=== PATIENT | female | born 1990 | race Caucasian/White ===

== ENCOUNTER 2024-07-20 13:17 | Outpatient (AMB) | payer MEDICARE, SELFPAY ==
--- NOTE | 2024-07-20 13:21 | AMB.OBINITIA ---
Vital Signs 07/20/24 13:36 Height 1.52 m Height Method Stated Weight 81.193 kg Weight Measurement Method Standing Scale BMI 34.9 BP 118/80 Blood Pressure Source Automatic Cuff Blood Pressure Location Left Upper Arm Position Sitting Respiration 16 Pulse 83 Pulse Source Monitor Temp 97.7 F Temp Source Oral Pulse Oximetry (%) 98 Oxygen Delivery Method Room Air Allergies/Home Meds Allergies & Medications Allergies No Known Allergies Allergy (Verified 07/20/24 13:37) Medication Reconciliation aspirin 81 mg tablet,delayed release (Adult Aspirin Regimen) 81 mg PO QDAY #60 tabs 07/20/24 [Rx] labetalol 100 mg tablet 100 mg PO BID 07/20/24 [History Confirmed 07/20/24] Intake Visit Data Collection New Patient or Established: New Patient (never been to [facility]) Reason for Visit:: INITIAL CARE Seen by Clinical Staff ONLY (RN/MA): No Tools And Parts Attendant Required: No Do You Feel Safe at Home: Yes Authorities Contacted: N/A PCP or OBGYN visit in last 3 months: Yes Hx Now: Yes Are you currently on any form of Control: No Last menstrual period: 04/15/24 Pain Present Currently: Yes Pain Location: Back Pain Scale Used: Wellington-Blake/Numerical Pain scale:: 7 Smoking Status Smoking Status: Never smoker Questionnaires Covid-19 Vaccine Questionnaire Has patient been vacinated for Covid-19 Have you been vacinated for Covid-19: Yes PHQ-9 PHQ-2 Over the last 2 weeks, how often have you been bothered by any of the following problems? 1. Little interest or pleasure in doing things: not at all 2. Feeling down, depressed, or hopeless: not at all Total score: 0 PHQ-9 3. Trouble falling or staying asleep, or sleeping too much: Not at all 4. Feeling tired or having little energy: Not at all 5. Poor appetite or overeating: Not at all 6. Feeling bad about yourself - or that you are a failure or have let yourself or your family down: Not at all 7. Trouble concentrating on things, such as reading the newspaper or watching television: Not at all 8. Moving or speaking so slowly that other people could have noticed? - Or the opposite - being so fidgety or restless that you have been moving around a lot more than usual: not at all 9. Thoughts that you would be better off or of hurting yourself in some way: Not at all Total score: 0 Source: Developed by Drs. Tim Pedroza, Yoli Calderon, Bharat Sellers and colleagues, with an educational ana m from [employer]. Depression screen completed yes Social History Living Situation History Marital Status: Single Lives With: Family Housing: Apartment Tobacco History Smoking Status: Never smoker Second Hand Smoke Exposure: No Alcohol History Alcohol Intake: Current Domestic Abuse History Do You Feel Safe at Home: Yes History of Present Illness HPI Narrative This is a 34-year-old 2 para 1 for OBI. Patient's last. Was April 15, 2024. EDC by LMP is January 19, 2025. Patient reports that menses are normally irregular. patient is a previous section x 1 it was a failure to progress. She patient has a history of hypertension. She takes labetalol 200 mg twice daily. Patient denies social habits. She is also taking vitamins. Denies any bleeding or cramping or signs of miscarriage at this time. And both patient and are happy about the . OB Initial Visit OB Flowsheet OB Flowsheet Initial Weight: Not Recorded Date <del>?</del> EGA Weight Edema CTX Effacement BP Fundal ht Pres Dilation Effacement Station Visit Note Alb Glu FHR Mov 07/20/24 <del>?</del> 17w 5d 81.193 kg absent absent 118/80 15 34-year-old 2 para 1 here for OBI. Last period April 15, 2024. EDC by LMP is on January 19, 2025. Patient had an ultrasound at [facility] July 14 on that day she was measuring 16 weeks 6 days. heart tones present. Cervical length 5.2. NASIR was normal. Normal anatomy was also seen at that time. And an EDC by a 16-week ultrasound is December 23, 2024. Patient reports that her periods are usually irregular. Patient is taking labetalol 200 mg twice daily for hypertension. And patient is also taking her vitamin and low-dose baby aspirin as well. Patient has routine follow-up with her primary care for hypertension. Today we did OB panel. And carrier screen NIPT and AFP were also drawn. And ordered MFM ultrasound. Patient will follow-up with OB for next visit. SAB precautions were discussed 145 active Menstrual History Menstrual reliability: approximate (month known) Flow: heavy Menstrual regularity: irregular Monthly: Yes Age at menarche: 7 On control pills at conception: No Date of positive home test: 07/08/24 Associated symptoms (LMP): Reports fatigue and breast tenderness OB History : 2 Para: 1 # of Living Children: 1 Delivery History 1st : Child's name: LAINE date: 01/25/09 sex: male Delivery type: History of depression before or after : No Infection History & Risk Evaluation History of STDs: none Genetic Screening & History Genetic Screening/Teratology Counseling - Includes patient, baby's father, or anyone in either family with: 1. Patient's age 35 years or older as of estimated date of delivery: Yes 2. Thalassemia (Korean, Citizen Of [place], Mediterranean, or Background); MCV less than 80: No 3. Neural Tube Defect (Meningomyelocele, Spina Bifida, or Anencephaly): No 4. Congenital Heart Defect: No 5. Down Syndrome: No 6. Cristian-Sachs (Ashkenazi Restorationist, Cajun, [place]wana Partridge): No 7. Garcia Disease (Ashkenazi Restorationist): No 8. Familial Dysautonomia (Ashkenazi Restorationist): No 9. Sickle Cell Disease or Trait (): No 10. Hemophilia or other blood disorders: No 11. Muscular Dystrophy: No 12. Cystic Fibrosis: No 13. [place]'s Chorea: No 14. Mental Retardation/Autism: No 15. Other inherited genetic or chromosomal disorder: No 16. Maternal Metabolic Disorder (EG,TYPE 1 Diabetes, PKU): No 17. Patient or baby's father had a child with defects not listed above: No 18. Recurrent loss or a stillbirth: No 19. Medications (including supplements, vitamins, herbs or otc drugs)/illicit/recreational drugs/alcohol since last menstrual period: No 20. Any other: No Infection History 1. Live with someone with TB or exposed to TB: No 2. Rash or viral illness since last menstrual period: No 3. Hepatitis B,C: No Other (see comments) Source: [employer] Review of Systems Review of Systems Systems Reviewed: All systems reviewed, normal except as documented Constitutional Constitutional: Reports fatigue Endocrine Endocrine: Reports fatigue Exam General Limitations: no limitations General Appearance: alert, in no apparent distress, comfortable, cooperative, healthy appearing, well developed and well groomed Head Head exam: atraumatic, normocephalic and normal inspection Chest Chest inspection: Present normal inspection and symmetric chest wall rise Resp Respiratory exam: Present normal lung sounds bilaterally Card Cardiovascular exam: Present regular rate, normal rhythm and normal heart sounds Abdominal Abdominal exam: Present soft and normal bowel sounds Psych Psychiatric exam: Present normal affect and normal mood Office Procedures OB Clinic LOC & Office Proc's Nursing/Assessment Patient Status: Established Patient OB Clinic Nursing Assessment: Medication Reconciliation, Update PMH in EMR and Vital Signs OB Clinic Coordination of Care: Complex Care and Chronic Disease 1-5, Consent,records obtained, informed consent, Education Simp Pt/Fam, Lab and Imaging orders, Results/Orders obtained and Staff clarify orders Special Needs: Heart tones Miscellaneous Interventions: Blood/Urine Collection Established Patient Charge Established Patient Point Assignment: 165 Established Patient Point Charge: EP Level 5 (160-above) Assessment & Plan Diagnosis / Problem List (1) : Status: Acute (2) Advanced maternal age (AMA) in : Status: Acute (3) Previous section: Status: Acute (4) Encounter for supervision of normal in multigravida in first trimester: Status: Acute Plan Continue labetalol 200 twice daily. Schedule maternal- medicine ultrasound/anatomy scan. OB panel today. NIPT AFP and carrier screens today I ordered low-dose baby aspirin to be taken once daily. To 36 weeks. Continue vitamins. Discussed SAB precautions. I discussed diet and weight gain. Schedule with OB next OB appointment. Additional Plan Follow Up: 3 Weeks (obc)
[2024-07-20 13:36] VITALS: BP 118/80; PULSE 83; RESP 16; TEMP 36.5; O2SAT 98; BMI 34.9
== END 2024-07-20 14:15 | disposition home or self-care (01) ==
LOC: HODSOBC 13:17
PROVIDERS: Supervising Provider Advanced Practice Midwife; Visit Provider Advanced Practice Midwife
DX: O09.522 Supervision of elderly multigravida, second trimester (principal); Z3A.17 17 weeks gestation of pregnancy; O09.292 Supervision of pregnancy with other poor reproductive or obstetric history, second trimester; O34.219 Maternal care for unspecified type scar from previous cesarean delivery; O10.912 Unspecified pre-existing hypertension complicating pregnancy, second trimester; Z79.899 Other long term (current) drug therapy; Z87.59 Personal history of other complications of pregnancy, childbirth and the puerperium; Z79.82 Long term (current) use of aspirin
CPT/HCPCS: 81001; 99215; G0463

== ENCOUNTER 2024-08-24 08:52 | Outpatient (AMB) | payer MEDICARE, SELFPAY ==
[2024-08-24 09:31] VITALS: BP 115/79; PULSE 67; RESP 17; TEMP 36.3; O2SAT 99; BMI 34.8
--- NOTE | 2024-08-24 09:31 | AMB.OBVISIT ---
Vital Signs 08/24/24 09:31 Height 1.52 m Height Method Stated Weight 80.456 kg Weight Measurement Method Standing Scale BMI 34.8 BP 115/79 Blood Pressure Source Automatic Cuff Blood Pressure Location Right Upper Arm Position Sitting Respiration 17 Pulse 67 Pulse Source Monitor Temp 97.3 F Temp Source Temporal Artery Scan Pulse Oximetry (%) 99 Oxygen Delivery Method Room Air Allergies/Home Meds Allergies & Medications Allergies No Known Allergies Allergy (Verified 08/24/24 09:32) Medication Reconciliation aspirin 81 mg tablet,delayed release (Adult Aspirin Regimen) 81 mg PO QDAY #60 tabs 07/20/24 [Rx Confirmed 08/24/24] labetalol 100 mg tablet 100 mg PO BID 07/20/24 [History Confirmed 08/24/24] Intake Visit Data Collection New Patient or Established: Established Patient (seen at [facility] within 3 years) Reason for Visit:: OBC Seen by Clinical Staff ONLY (RN/MA): No Fiber Optics Engineer Required: No Do You Feel Safe at Home: Yes Authorities Contacted: N/A PCP or OBGYN visit in last 3 months: Yes Date of Last PCP or OBGYN visit: 07/20/24 Hx Now: Yes Are you currently on any form of Control: No Pain Present Currently: No Pain Scale Used: Wellington-Blake/Numerical Pain scale:: 0 Smoking Status Smoking Status: Never smoker Questionnaires Covid-19 Vaccine Questionnaire Has patient been vacinated for Covid-19 Have you been vacinated for Covid-19: Yes PHQ-9 PHQ-2 Over the last 2 weeks, how often have you been bothered by any of the following problems? 1. Little interest or pleasure in doing things: not at all 2. Feeling down, depressed, or hopeless: not at all Total score: 0 PHQ-9 3. Trouble falling or staying asleep, or sleeping too much: Not at all 4. Feeling tired or having little energy: Not at all 5. Poor appetite or overeating: Not at all 6. Feeling bad about yourself - or that you are a failure or have let yourself or your family down: Not at all 7. Trouble concentrating on things, such as reading the newspaper or watching television: Not at all 8. Moving or speaking so slowly that other people could have noticed? - Or the opposite - being so fidgety or restless that you have been moving around a lot more than usual: not at all 9. Thoughts that you would be better off or of hurting yourself in some way: Not at all Total score: 0 If you checked off any problems, how difficult have these problems made it for you to do your work, take care of things at home, or get along with other people?: not difficult at all Source: Developed by Drs. Tim Pedroza, Yoli Calderon, Bharat Sellers and colleagues, with an educational ana m from [employer]. Depression screen completed yes Social History Living Situation History Marital Status: Lives With: Family Housing: Apartment Tobacco History Smoking Status: Never smoker Second Hand Smoke Exposure: No Alcohol History Alcohol Intake: Current Alcohol Intake Frequency: holidays/special occasions only Domestic Abuse History Do You Feel Safe at Home: Yes History of Present Illness HPI Narrative Sabrina Serna, , presents for routine visit at 22 weeks and 5 days gestation. History of prior delivery in 2008. No contractions, LOF, VB and reports good FM. Patient reports morning sickness and nausea. Denies NOVOA, VC, and epigastric pain. - Sabrina Serna is a 34-year-old at 22 weeks and 5 days gestation presenting for care with a history of chronic hypertension and previous . - Chief complaint: Persistent morning sickness - Onset: Not specified, but continuing beyond 20 weeks gestation - Character: Nausea, no mention of vomiting - Timing: Occurs after taking morning medication and walking dogs, then eating - Severity: Not specified - No current treatment for nausea - Medication adherence: - Taking labetalol 200mg BID for chronic hypertension - Taking vitamins as prescribed - Denies any other -related symptoms or concerns Review of Systems Review of Systems Systems Reviewed: All systems reviewed, normal except as documented Care OB Visit Log OB Flowsheet Initial Weight: Not Recorded Date <del>?</del> EGA Weight BP Alb Glu CTX Pres Fundal ht FHR Mov Dilation Station Effacement Hx Notes Visit Note 07/20/24 <del>?</del> 17w 5d 81.193 kg 118/80 absent 15 145 active 34-year-old 2 para 1 here for OBI. Last period April 15, 2024. EDC by LMP is on January 19, 2025. Patient had an ultrasound at [facility] July 14 on that day she was measuring 16 weeks 6 days. heart tones present. Cervical length 5.2. NASIR was normal. Normal anatomy was also seen at that time. And an EDC by a 16-week ultrasound is December 23, 2024. Patient reports that her periods are usually irregular. Patient is taking labetalol 200 mg twice daily for hypertension. And patient is also taking her vitamin and low-dose baby aspirin as well. Patient has routine follow-up with her primary care for hypertension. Today we did OB panel. And carrier screen NIPT and AFP were also drawn. And ordered [facility] ultrasound. Patient will follow-up with OB for next visit. SAB precautions were discussed 08/24/24 <del>?</del> 22w 5d 80.456 kg 115/79 at 22 weeks and 5 days gestation, presents for routine care. History of chronic hypertension on labetalol 200 mg BID and prior section in 2008. Reports persistent morning nausea occurring after medications and activity, without vomiting. No contractions, LOF, VB; movements are reassuring. All prior labs and NIPT are within normal limits; fetus is female. FHT 159?160 bpm. Plan: Prescribed nausea medication to take prior to meals. Ordered glucose tolerance testing for 25?26 weeks gestation. Follow-up in 4 weeks with anatomy ultrasound scheduled for September 16 in [place]. Continue labetalol and BP monitoring. Reviewed preeclampsia precautions and labor signs. Reinforced nutrition and movement tracking. Laboratory, Imaging, and Diagnostic Test Results - Date: 07/29/2024 - Blood group: O positive - Antibody screen: Negative - RPR: Non-reactive - Rubella: Immune - Hepatitis B: Negative - Hepatitis C: Negative - Gonorrhea: Negative - Chlamydia: Negative - Urinalysis: Clear - NIPT: Negative, female gender - SMA: Negative - AFP: Negative - Ultrasound (07/14/2024): - Gestational age: 16 weeks and 6 days - Estimated due date: 12/23/2024 DENICE Calculator Estimated Delivery Date Method Current WG Current Estimate 12/23/24 Ultrasound #1 22w 6d Other Estimates 01/20/25 LMP (Uncertain) 18w 6d Notes Visit Date: 07/20/24 Last Updated by: Claire Martinez CNM 34 yo . sono 07/14/24: 16w6. edc by glenroy is: 12/23/24 Exam General General Appearance: alert, in no apparent distress and healthy appearing Head Head exam: atraumatic Neck Neck exam: Present normal inspection and trachea midline Chest Chest inspection: Present normal inspection and symmetric chest wall rise External exam: Present normal external exam; Absent tenderness Neuro Neurological exam: Present oriented X3 Psych Psychiatric exam: Present normal affect and normal mood Office Procedures OB Clinic LOC & Office Proc's Nursing/Assessment Patient Status: Established Patient OB Clinic Nursing Assessment: Medication Reconciliation, Update PMH in EMR and Vital Signs OB Clinic Coordination of Care: Complex Care and Chronic Disease 1-5, Consent,records obtained, informed consent, Education Simp Pt/Fam and Staff clarify orders Special Needs: Heart tones Established Patient Charge Established Patient Point Assignment: 115 Established Patient Point Charge: EP Level 3 (80-115) Assessment & Plan Diagnosis / Problem List (1) Previous section: Status: Acute Plan Problem List - Chronic hypertension - - Nausea of Assessment 34-year-old at 22 weeks and 5 days gestation presenting for routine care. Patient has a history of chronic hypertension managed with labetalol 200mg BID. She reports persistent morning sickness despite being in the second trimester, characterized by nausea without vomiting. Previous obstetric history significant for one section in 2008. screening results are reassuring, including negative NIPT with female fetus, negative SMA and AFP. Physical exam reveals heart rate of 159-160 bpm, which is within normal limits. Plan - Prescribe nausea medication to be taken before eating - Provide lab slip for diabetes test to be completed around 25-26 weeks gestation, 2 days before next appointment - Follow up appointment scheduled in 4 weeks - Ultrasound scheduled for September 16 in [place] - Continue monitoring blood pressure 1. Progress Reviewed gestational age, growth, and heart rate. Planned frequent visits (every 2 weeks until 36 weeks, then weekly). 2. Instructed patient to monitor movements and report decreases immediately. 3. Testing Counseled on routine third-trimester labs per guidelines. Discussed potential need for ultrasound or monitoring based on risk factors. 4. Preeclampsia Precaution Educated on preeclampsia signs: severe headache, vision changes, right upper quadrant pain, sudden swelling. Advised urgent reporting of symptoms and discussed blood pressure monitoring if high risk. 5. Labor Precautions Reviewed labor signs: regular contractions, pelvic pressure, back pain, bleeding, or fluid leakage. Instructed to seek immediate care for these symptoms. 6. Lifestyle and Delivery Preparation Reinforced vitamins, nutrition, and safe activity. Discussed plan, pain management, and . Advised on labor preparation (e.g., hospital bag) and expectations. 7. Psychosocial Support Assessed emotional well-being and offered resources for mental health or parenting support.
== END 2024-08-24 09:45 | disposition home or self-care (01) ==
LOC: HODSOBC 08:52
PROVIDERS: Supervising Provider Obstetrics & Gynecology; Visit Provider Obstetrics & Gynecology
DX: O09.522 Supervision of elderly multigravida, second trimester (principal); O09.292 Supervision of pregnancy with other poor reproductive or obstetric history, second trimester; O34.219 Maternal care for unspecified type scar from previous cesarean delivery; O09.892 Supervision of other high risk pregnancies, second trimester; O10.912 Unspecified pre-existing hypertension complicating pregnancy, second trimester; Z3A.22 22 weeks gestation of pregnancy; Z79.899 Other long term (current) drug therapy; Z3A.17 17 weeks gestation of pregnancy
CPT/HCPCS: 99213; G0463

== ENCOUNTER 2024-09-21 12:48 | Outpatient (AMB) | payer MEDICARE, SELFPAY ==
[2024-09-21 12:58] VITALS: BP 126/87; PULSE 70; RESP 17; TEMP 36.6; O2SAT 98; BMI 34.8
--- NOTE | 2024-09-21 12:58 | AMB.OBVISIT ---
Vital Signs 09/21/24 12:58 Height 1.52 m Height Method Measured Weight 80.456 kg Weight Measurement Method Standing Scale BMI 34.8 BP 126/87 H Blood Pressure Source Automatic Cuff Blood Pressure Location Right Upper Arm Position Sitting Respiration 17 Pulse 70 Pulse Source Monitor Temp 97.8 F Temp Source Temporal Artery Scan Pulse Oximetry (%) 98 Oxygen Delivery Method Room Air Allergies/Home Meds Allergies & Medications Allergies No Known Allergies Allergy (Verified 09/21/24 12:59) Medication Reconciliation labetalol 100 mg tablet 100 mg PO BID 07/20/24 [History Confirmed 09/21/24] aspirin 81 mg tablet 81 mg PO QDAY 90 days #90 tabs 09/21/24 [Rx] mv-mn no.97-folic 180 mcg-dha 25 mg-herb no.293 25 mg chewable tablet (Alive Daily Support ) tab PO 09/21/24 [History Confirmed 09/21/24] Intake Visit Data Collection New Patient or Established: Established Patient (seen at [facility] within 3 years) Reason for Visit:: C Consent obtained for Telemed Visit: No Seen by Clinical Staff ONLY (RN/MA): No Procurement Specialist Required: No Do You Feel Safe at Home: Yes Authorities Contacted: N/A PCP or OBGYN visit in last 3 months: Yes Date of Last PCP or OBGYN visit: 08/24/24 Hx Now: Yes Are you currently on any form of Control: No Pain Present Currently: No Pain Scale Used: Wellington-Blake/Numerical Pain scale:: 0 Smoking Status Smoking Status: Never smoker Questionnaires Covid-19 Vaccine Questionnaire Has patient been vacinated for Covid-19 Have you been vacinated for Covid-19: Yes PHQ-9 PHQ-2 Over the last 2 weeks, how often have you been bothered by any of the following problems? 1. Little interest or pleasure in doing things: not at all PHQ-9 8. Moving or speaking so slowly that other people could have noticed? - Or the opposite - being so fidgety or restless that you have been moving around a lot more than usual: not at all Source: Developed by Drs. Tim Pedroza, Yoli Calderon, Bharat Sellers and colleagues, with an educational ana m from [employer]. Social History Living Situation History Lives With: Family Housing: Apartment Tobacco History Smoking Status: Never smoker Second Hand Smoke Exposure: No Alcohol History Alcohol Intake: Current Alcohol Intake Frequency: holidays/special occasions only Domestic Abuse History Do You Feel Safe at Home: Yes Care OB Visit Log OB Flowsheet Initial Weight: Not Recorded Date <del>?</del> EGA Weight BP Alb Glu CTX Pres Fundal ht FHR Mov Dilation Station Effacement Hx Notes Visit Note 07/20/24 <del>?</del> 17w 5d 81.193 kg 118/80 absent 15 145 active 34-year-old 2 para 1 here for OBI. Last period April 15, 2024. EDC by LMP is on January 19, 2025. Patient had an ultrasound at [facility] July 14 on that day she was measuring 16 weeks 6 days. heart tones present. Cervical length 5.2. NASIR was normal. Normal anatomy was also seen at that time. And an EDC by a 16-week ultrasound is December 23, 2024. Patient reports that her periods are usually irregular. Patient is taking labetalol 200 mg twice daily for hypertension. And patient is also taking her vitamin and low-dose baby aspirin as well. Patient has routine follow-up with her primary care for hypertension. Today we did OB panel. And carrier screen NIPT and AFP were also drawn. And ordered MFM ultrasound. Patient will follow-up with OB for next visit. SAB precautions were discussed 08/24/24 <del>?</del> 22w 5d 80.456 kg 115/79 at 22 weeks and 5 days gestation, presents for routine care. History of chronic hypertension on labetalol 200 mg BID and prior section in 2008. Reports persistent morning nausea occurring after medications and activity, without vomiting. No contractions, LOF, VB; movements are reassuring. All prior labs and NIPT are within normal limits; fetus is female. FHT 159?160 bpm. Plan: Prescribed nausea medication to take prior to meals. Ordered glucose tolerance testing for 25?26 weeks gestation. Follow-up in 4 weeks with anatomy ultrasound scheduled for September 16 in [employer]. Continue labetalol and BP monitoring. Reviewed preeclampsia precautions and labor signs. Reinforced nutrition and movement tracking. Laboratory, Imaging, and Diagnostic Test Results - Date: 07/29/2024 - Blood group: O positive - Antibody screen: Negative - RPR: Non-reactive - Rubella: Immune - Hepatitis B: Negative - Hepatitis C: Negative - Gonorrhea: Negative - Chlamydia: Negative - Urinalysis: Clear - NIPT: Negative, female gender - SMA: Negative - AFP: Negative - Ultrasound (07/14/2024): - Gestational age: 16 weeks and 6 days - Estimated due date: 12/23/2024 09/21/24 <del>?</del> 26w 5d 80.456 kg 126/87 occasional cephalic 27 155 active at 26w5d with GDM and chronic HTN on labetalol. 1hr GTT 157. FM+, no CTX, FHR 155. Plan: Schedule 3hr GTT, start ASA 81mg, f/u in 2wks. Repeat sono in Oct, serial growth scans in , antepartum testing from 32w, plan delivery 37?39+6w if BP controlled. DENICE Calculator Estimated Delivery Date Method Current WG Current Estimate 12/23/24 Ultrasound #1 27w 0d Other Estimates 01/20/25 LMP (Uncertain) 23w 0d Notes Visit Date: 07/20/24 Last Updated by: Claire Martinez CNM 34 yo . sono 07/14/24: 16w6. edc by sono is: 12/23/24 Office Procedures OB Clinic LOC & Office Proc's Nursing/Assessment Patient Status: Established Patient OB Clinic Nursing Assessment: Medication Reconciliation, Update PMH in EMR and Vital Signs OB Clinic Coordination of Care: Complex Care and Chronic Disease 1-5, Consent,records obtained, informed consent, Education Simp Pt/Fam and 4+ Authorizations needed Special Needs: Heart tones Established Patient Charge Established Patient Point Assignment: 130 Established Patient Point Charge: EP Level 4 (120-155) Assessment & Plan Diagnosis / Problem List (1) Supervision of high risk , unspecified, second trimester: Status: Acute Plan Problem List - , 26 weeks and 5 days - Gestational diabetes mellitus - Chronic hypertension complicating - Elevated one-hour glucose tolerance test Assessment 34-year-old at 26 weeks and 5 days gestation presenting for routine care. Patient has elevated blood pressure requiring close monitoring and labetalol therapy. One-hour glucose tolerance test resulted in 157 mg/dL, indicating gestational diabetes. Recent ultrasound showed normal anatomy survey with some suboptimal views. TSH is normal at 1.5 and A1c is 5.2. Patient reports active movement and denies contractions or other problems. heart rate auscultated at 155 bpm, which is within normal range. Plan - Schedule 3-hour glucose tolerance test within the next 2 weeks - Start low-dose aspirin 81mg daily for preeclampsia prevention - Follow up in 2 weeks to review 3-hour glucose test results - Continue monitoring blood pressure closely - Attend follow-up ultrasound in October for suboptimal views - Serial growth scans in 3rd trimester - Reevaluation for placenta accreta - Begin antepartum testing at 32 weeks - Plan for delivery between 37+0 and 39+6 weeks if hypertension remains well-controlled 1. Progress Reviewed gestational age, growth, and heart rate. Planned frequent visits (every 2 weeks until 36 weeks, then weekly). 2. Instructed patient to monitor movements and report decreases immediately. 3. Testing Counseled on routine third-trimester labs per guidelines. Discussed potential need for ultrasound or monitoring based on risk factors. 4. Preeclampsia Precaution Educated on preeclampsia signs: severe headache, vision changes, right upper quadrant pain, sudden swelling. Advised urgent reporting of symptoms and discussed blood pressure monitoring if high risk. 5. Labor Precautions Reviewed labor signs: regular contractions, pelvic pressure, back pain, bleeding, or fluid leakage. Instructed to seek immediate care for these symptoms. 6. Lifestyle and Delivery Preparation Reinforced vitamins, nutrition, and safe activity. Discussed plan, pain management, and . Advised on labor preparation (e.g., hospital bag) and expectations. 7. Psychosocial Support Assessed emotional well-being and offered resources for mental health or parenting support.
== END 2024-09-21 13:45 | disposition home or self-care (01) ==
LOC: HODSOBC 12:48
PROVIDERS: Supervising Provider Obstetrics & Gynecology; Visit Provider Obstetrics & Gynecology
DX: O09.512 Supervision of elderly primigravida, second trimester (principal); Z3A.26 26 weeks gestation of pregnancy; O09.892 Supervision of other high risk pregnancies, second trimester; O10.912 Unspecified pre-existing hypertension complicating pregnancy, second trimester; O24.419 Gestational diabetes mellitus in pregnancy, unspecified control; Z79.899 Other long term (current) drug therapy
CPT/HCPCS: 99214; G0463

== ENCOUNTER 2024-10-20 11:00 | Outpatient (AMB) | payer MEDICARE, MEDICAID, SELFPAY ==
[2024-10-20 11:31] VITALS: BP 117/75; PULSE 82; RESP 18; TEMP 36.2; O2SAT 98; BMI 34.8
--- NOTE | 2024-10-20 11:31 | OBCLNT_ITS ---
Vital Signs 10/20/24 11:31 Height 1.52 m Height Method Stated Weight 80.456 kg Weight Measurement Method Standing Scale BMI 34.8 BP 117/75 Blood Pressure Source Automatic Cuff Blood Pressure Location Left Upper Arm Position Sitting Respiration 18 Pulse 82 Pulse Source Monitor Temp 97.2 F Temp Source Oral Pulse Oximetry (%) 98 Oxygen Delivery Method Room Air Allergies/Home Meds Allergies & Medications Allergies No Known Allergies Allergy (Verified 11/10/24 11:17) Medication Reconciliation labetalol 100 mg tablet 100 mg PO BID 07/20/24 [History Confirmed 11/10/24] aspirin 81 mg tablet 81 mg PO QDAY 90 days #90 tabs 09/21/24 [Rx Confirmed 11/10/24] mv-mn no.97-folic 180 mcg-dha 25 mg-herb no.293 25 mg chewable tablet (Alive Daily Support ) tab PO 09/21/24 [History Confirmed 11/10/24] Intake Visit Data Collection New Patient or Established: Established Patient (seen at [facility] within 3 years) Reason for Visit:: OBC Seen by Clinical Staff ONLY (RN/MA): No Roof Bolter Operator Required: No Do You Feel Safe at Home: Yes Authorities Contacted: N/A PCP or OBGYN visit in last 3 months: Yes Date of Last PCP or OBGYN visit: 09/21/24 Hx Now: Yes Are you currently on any form of Control: No Pain Present Currently: No Pain Scale Used: Wellington-Blake/Numerical Pain scale:: 0 Smoking Status Smoking Status: Never smoker Questionnaires Covid-19 Vaccine Questionnaire Has patient been vacinated for Covid-19 Have you been vacinated for Covid-19: No PHQ-9 PHQ-2 Over the last 2 weeks, how often have you been bothered by any of the following problems? 1. Little interest or pleasure in doing things: not at all 2. Feeling down, depressed, or hopeless: not at all Total score: 0 PHQ-9 3. Trouble falling or staying asleep, or sleeping too much: Not at all 4. Feeling tired or having little energy: Not at all 5. Poor appetite or overeating: Not at all 6. Feeling bad about yourself - or that you are a failure or have let yourself or your family down: Not at all 7. Trouble concentrating on things, such as reading the newspaper or watching television: Not at all 8. Moving or speaking so slowly that other people could have noticed? - Or the opposite - being so fidgety or restless that you have been moving around a lot more than usual: not at all 9. Thoughts that you would be better off or of hurting yourself in some way: Not at all Total score: 0 If you checked off any problems, how difficult have these problems made it for you to do your work, take care of things at home, or get along with other people?: not difficult at all Source: Developed by Drs. Tim Pedroza, Yoli Calderon, Bharat Sellers and colleagues, with an educational ana m from [employer]. Depression screen completed yes Social History Living Situation History Lives With: Family Housing: Apartment Tobacco History Smoking Status: Never smoker Second Hand Smoke Exposure: No Alcohol History Alcohol Intake: Current Alcohol Intake Frequency: holidays/special occasions only Domestic Abuse History Do You Feel Safe at Home: Yes Care OB Visit Log OB Flowsheet Initial Weight: Not Recorded Date -?-?-?-?-?-?-?-?-?-?-?-?- EGA Weight BP Alb Glu CTX Pres Fundal ht FHR Mov Dilation Station Effacement Hx Notes Visit Note 07/20/24 -?-?-?-?-?-?-?-?-?-?-?-?- 17w 5d 81.193 kg 118/80 absent 15 145 ac tive 34-year-old 2 para 1 here for OBI. Last period April 15, 2024. EDC by LMP is on January 19, 2025. Patient had an ultrasound at [facility] July 14 on that day she was measuring 16 weeks 6 days. heart tones present. Cervical length 5.2. NASIR was normal. Normal anatomy was also seen at that time. And an EDC by a 16-week ultrasound is December 23, 2024. Patient reports that her periods are usually irregular. Patient is taking labetalol 200 mg twice daily for hypertension. And patient is also taking her vitamin and low-dose baby aspirin as well. Patient has routine follow-up with her primary care for hypertension. Today we did OB panel. And carrier screen NIPT and AFP were also drawn. And ordered MFM ultrasound. Patient will follow-up with OB for next visit. SAB precautions were discussed 08/24/24 -?-?-?-?-?-?-?-?-?-?-?-?- 22w 5d 80.456 kg 115/79 at 22 weeks and 5 days gestation, presents for routine care. History of chronic hypertension on labetalol 200 mg BID and prior section in 2008. Reports persistent morning nausea occurring after medications and activity, without vomiting. No contractions, LOF, VB; movements are reassuring. All prior labs and NIPT are within normal limits; fetus is female. FHT 159?160 bpm. Plan: Prescribed nausea medication to ta ke prior to meals. Ordered glucose tolerance testing for 25?26 weeks gestation. Follow-up in 4 weeks with anatomy ultrasound scheduled for September 16 in [place]. Continue labetalol and BP jim toring. Reviewed preeclampsia precautions and labor signs. Reinforced nutrition and movement tracking. Laboratory, Imaging, and Diagnostic Test Results - Date: 07/29/2024 - Blood group: O positive - Antibody screen: Negative - RPR: Non-reactive - Rubella: Immune - Hepatitis B: Negative - Hepatitis C: Negative - Gonorrhea: Negative - Chlamydia: Negative - Urinalysis: Clear - NIPT: Negative, female gender - SMA: Negative - AFP: Negative - Ultrasound (07/14/2024): - Gestational age: 16 weeks and 6 days - Estimated due date: 12/23/2024 09/21/24 -?-?-?-?-?-?-?-?-?-?-?-?- 26w 5d 80.456 kg 126/87 occasional cephalic 27 155 active at 26w5d with GDM and chronic HTN on labetalol. 1hr GTT 157. FM+, no CTX, FHR 155. Plan: Schedule 3hr GTT, start ASA 81mg, f/u in 2wks. Repeat sono in Oct, serial growth scans in , antepartum testing from 32w, plan delivery 37?39+6w if BP controlled. 10/20/24 -?-?-?-?-?-?-?-?-?-?-?-?- 30w 6d 80.456 kg 117/75 absent cephalic 32 145 active No contractions, LOF, VB and reports good FM. Denies NOVOA, VC, and epigastric pain. - Sabrina Serna is a patient presenting for routine care at 30 weeks and 6 days gestation. - Patient had an abnormal one-hour gluco se tolerance test at a previous appointment. - Subsequent 3-hour glucose tolerance te st results were within normal limits: - Fastin mg/dL - 1 hour: 149 mg/dL - 2 hour: 141 mg/dL - 3 hour: 111 mg/dL - Patient expressed desire to transfer c are to a different provider in [place], but no facilities are currently accepting new patients. Plan - Continue routine care - No further action needed regarding glu cose tolerance test, as 3-hour test results were within normal limits - Provide information on Hygeia breast p ump, including XpressPower tubing, adapter replacements, bottle caps, breast urrutia, splash protectors, and locking rings DENICE Calculator Estimated Delivery Date Method Current WG Current Estimate 12/23/24 Ultrasound #1 33w 6d Other Estimates 01/20/25 LMP (Uncertain) 29w 6d Notes Visit Date: 10/20/24 Last Updated by: Osman Lopez MD Problem List - Routine care - Abnormal estational diabetes screening but normal 3hr Visit Date: 07/20/24 Last Updated by: Claire Martinez CNM 34 yo . [place] 07/14/24: 16w6. edc by [place] is: 12/23/24 Office Procedures OB Clinic LOC & Office Proc's Nursing/Assessment Patient Status: Established Patient OB Clinic Nursing Assessment: Medication Reconciliation, Update PMH in EMR and Vital Signs OB Clinic Coordination of Care: Education Complex Pt/Fam, Consent,records obtained, informed consent, Lab and Imaging orders and Staff clarify orders Special Needs: Heart tones Established Patient Charge Established Patient Point Assignment: 110 Established Patient Point Charge: EP Level 3 (80-115) Assessment & Plan Diagnosis / Problem List (1) Supervision of high risk , unspecified, third trimester: Status: Acute
== END 2024-10-20 11:49 | disposition home or self-care (01) ==
LOC: HODSOBC 11:00
PROVIDERS: Supervising Provider Obstetrics & Gynecology; Visit Provider Obstetrics & Gynecology
DX: O09.523 Supervision of elderly multigravida, third trimester (principal); O09.893 Supervision of other high risk pregnancies, third trimester; O10.913 Unspecified pre-existing hypertension complicating pregnancy, third trimester; Z3A.30 30 weeks gestation of pregnancy; Z79.82 Long term (current) use of aspirin; Z79.899 Other long term (current) drug therapy
CPT/HCPCS: 99213; G0463

== ENCOUNTER 2024-11-10 11:06 | Outpatient (AMB) | payer MEDICARE, MEDICAID, SELFPAY ==
[2024-11-10 11:16] VITALS: BP 120/87; PULSE 83; RESP 16; TEMP 36.2; O2SAT 98; BMI 34.9
--- NOTE | 2024-11-10 11:16 | OBCLNT_ITS ---
Vital Signs 11/10/24 11:16 Height 1.52 m Height Method Stated Weight 80.739 kg Weight Measurement Method Standing Scale BMI 34.9 BP 120/87 H Blood Pressure Source Automatic Cuff Blood Pressure Location Left Upper Arm Position Sitting Respiration 16 Pulse 83 Pulse Source Monitor Temp 97.2 F Temp Source Oral Pulse Oximetry (%) 98 Oxygen Delivery Method Room Air Allergies/Home Meds Allergies & Medications Allergies No Known Allergies Allergy (Verified 11/10/24 11:17) Medication Reconciliation labetalol 100 mg tablet 100 mg PO BID 07/20/24 [History Confirmed 11/10/24] aspirin 81 mg tablet 81 mg PO QDAY 90 days #90 tabs 09/21/24 [Rx Confirmed 11/10/24] mv-mn no.97-folic 180 mcg-dha 25 mg-herb no.293 25 mg chewable tablet (Alive Daily Support ) tab PO 09/21/24 [History Confirmed 11/10/24] Intake Visit Data Collection New Patient or Established: Established Patient (seen at [facility] within 3 years) Reason for Visit:: OBC Seen by Clinical Staff ONLY (RN/MA): No Director Of Outreach Required: No Do You Feel Safe at Home: Yes Authorities Contacted: N/A PCP or OBGYN visit in last 3 months: Yes Date of Last PCP or OBGYN visit: 10/20/24 Hx Now: Yes Are you currently on any form of Control: No Pain Present Currently: No Pain Scale Used: Wellington-Blake/Numerical Pain scale:: 0 Smoking Status Smoking Status: Never smoker Questionnaires Covid-19 Vaccine Questionnaire Has patient been vacinated for Covid-19 Have you been vacinated for Covid-19: No PHQ-9 PHQ-2 Over the last 2 weeks, how often have you been bothered by any of the following problems? 1. Little interest or pleasure in doing things: not at all 2. Feeling down, depressed, or hopeless: not at all Total score: 0 PHQ-9 3. Trouble falling or staying asleep, or sleeping too much: Not at all 4. Feeling tired or having little energy: Not at all 5. Poor appetite or overeating: Not at all 6. Feeling bad about yourself - or that you are a failure or have let yourself or your family down: Not at all 7. Trouble concentrating on things, such as reading the newspaper or watching television: Not at all 8. Moving or speaking so slowly that other people could have noticed? - Or the opposite - being so fidgety or restless that you have been moving around a lot more than usual: not at all 9. Thoughts that you would be better off or of hurting yourself in some way: Not at all Total score: 0 If you checked off any problems, how difficult have these problems made it for you to do your work, take care of things at home, or get along with other people?: not difficult at all Source: Developed by Drs. Tim Pedroza, Yoli Calderon, Bharat Sellers and colleagues, with an educational ana m from [employer]. Depression screen completed yes Social History Living Situation History Lives With: Family Housing: Apartment Tobacco History Smoking Status: Never smoker Second Hand Smoke Exposure: No Alcohol History Alcohol Intake: Current Alcohol Intake Frequency: holidays/special occasions only Domestic Abuse History Do You Feel Safe at Home: Yes Care OB Visit Log OB Flowsheet Initial Weight: Not Recorded Date -?-?-?-?-?-?-?-?-?-?-?-?- EGA Weight BP Alb Glu CTX Pres Fundal ht FHR Mov Dilation Station Effacement Hx Notes Visit Note 07/20/24 -?-?-?-?-?-?-?-?-?-?-?-?- 17w 5d 81.193 kg 118/80 absent 15 145 ac tive 34-year-old 2 para 1 here for OBI. Last period April 15, 2024. EDC by LMP is on January 19, 2025. Patient had an ultrasound at [facility] July 14 on that day she was measuring 16 weeks 6 days. heart tones present. Cervical length 5.2. NASIR was normal. Normal anatomy was also seen at that time. And an EDC by a 16-week ultrasound is December 23, 2024. Patient reports that her periods are usually irregular. Patient is taking labetalol 200 mg twice daily for hypertension. And patient is also taking her vitamin and low-dose baby aspirin as well. Patient has routine follow-up with her primary care for hypertension. Today we did OB panel. And carrier screen NIPT and AFP were also drawn. And ordered MFM ultrasound. Patient will follow-up with OB for next visit. SAB precautions were discussed 08/24/24 -?-?-?-?-?-?-?-?-?-?-?-?- 22w 5d 80.456 kg 115/79 at 22 weeks and 5 days gestation, presents for routine care. History of chronic hypertension on labetalol 200 mg BID and prior section in 2008. Reports persistent morning nausea occurring after medications and activity, without vomiting. No contractions, LOF, VB; movements are reassuring. All prior labs and NIPT are within normal limits; fetus is female. FHT 159?160 bpm. Plan: Prescribed nausea medication to ta ke prior to meals. Ordered glucose tolerance testing for 25?26 weeks gestation. Follow-up in 4 weeks with anatomy ultrasound scheduled for September 16 in [place]. Continue labetalol and BP mon itoring. Reviewed preeclampsia precautions and labor signs. Reinforced nutrition and movement tracking. Laboratory, Imaging, and Diagnostic Test Results - Date: 07/29/2024 - Blood group: O positive - Antibody screen: Negative - RPR: Non-reactive - Rubella: Immune - Hepatitis B: Negative - Hepatitis C: Negative - Gonorrhea: Negative - Chlamydia: Negative - Urinalysis: Clear - NIPT: Negative, female gender - SMA: Negative - AFP: Negative - Ultrasound (07/14/2024): - Gestational age: 16 weeks and 6 days - Estimated due date: 12/23/2024 09/21/24 -?-?-?-?-?-?-?-?-?-?-?-?- 26w 5d 80.456 kg 126/87 occasional cephalic 27 155 active at 26w5d with GDM and chronic HTN on labetalol. 1hr GTT 157. FM+, no CTX, FHR 155. Plan: Schedule 3hr GTT, start ASA 81mg, f/u in 2wks. Repeat sono in Oct, serial growth scans in , antepartum testing from 32w, plan delivery 37?39+6w if BP controlled. 10/20/24 -?-?-?-?-?-?-?-?-?-?-?-?- 30w 6d 80.456 kg 117/75 absent cephalic 32 145 active No contractions, LOF, VB and reports good FM. Denies NOVOA, VC, and epigastric pain. - Sabrina Serna is a patient presenting for routine care at 30 weeks and 6 days gestation. - Patient had an abnormal one-hour gluco se tolerance test at a previous appointment. - Subsequent 3-hour glucose tolerance te st results were within normal limits: - Fastin mg/dL - 1 hour: 149 mg/dL - 2 hour: 141 mg/dL - 3 hour: 111 mg/dL - Patient expressed desire to transfer c are to a different provider in [place], but no facilities are currently accepting new patients. Plan - Continue routine care - No further action needed regarding glu cose tolerance test, as 3-hour test results were within normal limits - Provide information on Hygeia breast p ump, including XpressPower tubing, adapter replacements, bottle caps, breast urrutia, splash protectors, and locking rings 11/10/24 -?-?-?-?-?-?-?-?-?-?-?-?- 33w 6d 80.739 kg 120/87 occasional cephalic 33 140 active at 33 weeks and 6 days gestation presenting for routine visit. Patient reports no contractions and active movement. heart rate auscultated at 145 bpm, which is within normal range. History of abnormal 1-hour glucose test but normal 3-hour test. No current signs of anemia or syphilis, though routine screening labs have been ordered. - Lab or chioma for routine labs: CBC, RPR, and A1C - Follow-up appointment scheduled in 2 w eeks - Patient advised to contact Dr. Bell at [facility] for potential transfer of care - If transfer occurs, current appointmen t can be cancelled and records will be faxed as needed DENICE Calculator Estimated Delivery Date Method Current WG Current Estimate 12/23/24 Ultrasound #1 33w 6d Other Estimates 01/20/25 LMP (Uncertain) 29w 6d Notes Visit Date: 10/20/24 Last Updated by: Osman Lopez MD Problem List - Routine care - Abnormal estational diabetes screening but normal 3hr Visit Date: 07/20/24 Last Updated by: Claire Martinez CNM 34 yo . glenroy 07/14/24: 16w6. edc by glenroy is: 12/23/24 Office Procedures OB Clinic LOC & Office Proc's Nursing/Assessment Patient Status: Established Patient OB Clinic Nursing Assessment: Medication Reconciliation, Update PMH in EMR and Vital Signs OB Clinic Coordination of Care: Education Complex Pt/Fam, Consent,records obtained, informed consent, Lab and Imaging orders and Staff clarify orders Special Needs: Heart tones Established Patient Charge Established Patient Point Assignment: 110 Established Patient Point Charge: EP Level 3 (80-115) Assessment & Plan Diagnosis / Problem List (1) Supervision of high risk , unspecified, third trimester: Status: Acute
== END 2024-11-10 11:37 | disposition home or self-care (01) ==
LOC: HODSOBC 11:06
PROVIDERS: Supervising Provider Obstetrics & Gynecology; Visit Provider Obstetrics & Gynecology
DX: O09.523 Supervision of elderly multigravida, third trimester (principal); Z3A.33 33 weeks gestation of pregnancy
CPT/HCPCS: 99213; G0463

== ENCOUNTER 2024-11-25 14:09 | Outpatient (AMB) | payer MEDICARE, MEDICAID, SELFPAY ==
[2024-11-25 14:23] VITALS: BP 139/88; PULSE 74; RESP 16; TEMP 36.8; O2SAT 98; BMI 35.5
--- NOTE | 2024-11-25 14:23 | AMB.OBVISIT ---
Vital Signs 11/25/24 14:23 Height 1.52 m Height Method Stated Weight 82.157 kg Weight Measurement Method Standing Scale BMI 35.5 BP 139/88 H Blood Pressure Source Automatic Cuff Blood Pressure Location Left Upper Arm Position Sitting Respiration 16 Pulse 74 Pulse Source Monitor Temp 98.2 F Temp Source Oral Pulse Oximetry (%) 98 Oxygen Delivery Method Room Air Allergies/Home Meds Allergies & Medications Allergies No Known Allergies Allergy (Verified 11/25/24 14:24) Medication Reconciliation labetalol 100 mg tablet 100 mg PO BID 07/20/24 [History Confirmed 11/25/24] aspirin 81 mg tablet 81 mg PO QDAY 90 days #90 tabs 09/21/24 [Rx Confirmed 11/25/24] mv-mn no.97-folic 180 mcg-dha 25 mg-herb no.293 25 mg chewable tablet (Alive Daily Support ) tab PO 09/21/24 [History Confirmed 11/25/24] Intake Visit Data Collection New Patient or Established: Established Patient (seen at [facility] within 3 years) Reason for Visit:: OBC Seen by Clinical Staff ONLY (RN/MA): No Sales Agent Financial Report Service Required: No Do You Feel Safe at Home: Yes Authorities Contacted: N/A PCP or OBGYN visit in last 3 months: Yes Date of Last PCP or OBGYN visit: 11/10/24 Hx Now: Yes Are you currently on any form of Control: No Pain Present Currently: No Pain Scale Used: Wellington-Blake/Numerical Pain scale:: 0 Smoking Status Smoking Status: Never smoker Questionnaires Covid-19 Vaccine Questionnaire Has patient been vacinated for Covid-19 Have you been vacinated for Covid-19: Yes PHQ-9 PHQ-2 Over the last 2 weeks, how often have you been bothered by any of the following problems? 1. Little interest or pleasure in doing things: not at all 2. Feeling down, depressed, or hopeless: not at all Total score: 0 PHQ-9 3. Trouble falling or staying asleep, or sleeping too much: Not at all 4. Feeling tired or having little energy: Not at all 5. Poor appetite or overeating: Not at all 6. Feeling bad about yourself - or that you are a failure or have let yourself or your family down: Not at all 7. Trouble concentrating on things, such as reading the newspaper or watching television: Not at all 8. Moving or speaking so slowly that other people could have noticed? - Or the opposite - being so fidgety or restless that you have been moving around a lot more than usual: not at all 9. Thoughts that you would be better off or of hurting yourself in some way: Not at all Total score: 0 If you checked off any problems, how difficult have these problems made it for you to do your work, take care of things at home, or get along with other people?: not difficult at all Source: Developed by Drs. Tim Pedroza, Yoli Calderon, Bharat Sellers and colleagues, with an educational ana m from [facility] [employer]. Depression screen completed yes Social History Living Situation History Lives With: Family Housing: Apartment Tobacco History Smoking Status: Never smoker Second Hand Smoke Exposure: No Alcohol History Alcohol Intake: Current Alcohol Intake Frequency: holidays/special occasions only Domestic Abuse History Do You Feel Safe at Home: Yes Care OB Visit Log OB Flowsheet Initial Weight: Not Recorded Date <del>?</del> EGA Weight BP Alb Glu CTX Pres Fundal ht FHR Mov Dilation Station Effacement Hx Notes Visit Note 07/20/24 <del>?</del> 17w 5d 81.193 kg 118/80 absent 15 145 active 34-year-old 2 para 1 here for OBI. Last period April 15, 2024. EDC by LMP is on January 19, 2025. Patient had an ultrasound at [facility] July 14 on that day she was measuring 16 weeks 6 days. heart tones present. Cervical length 5.2. NASIR was normal. Normal anatomy was also seen at that time. And an EDC by a 16-week ultrasound is December 23, 2024. Patient reports that her periods are usually irregular. Patient is taking labetalol 200 mg twice daily for hypertension. And patient is also taking her vitamin and low-dose baby aspirin as well. Patient has routine follow-up with her primary care for hypertension. Today we did OB panel. And carrier screen NIPT and AFP were also drawn. And ordered MFM ultrasound. Patient will follow-up with OB for next visit. SAB precautions were discussed 08/24/24 <del>?</del> 22w 5d 80.456 kg 115/79 at 22 weeks and 5 days gestation, presents for routine care. History of chronic hypertension on labetalol 200 mg BID and prior section in 2008. Reports persistent morning nausea occurring after medications and activity, without vomiting. No contractions, LOF, VB; movements are reassuring. All prior labs and NIPT are within normal limits; fetus is female. FHT 159?160 bpm. Plan: Prescribed nausea medication to take prior to meals. Ordered glucose tolerance testing for 25?26 weeks gestation. Follow-up in 4 weeks with anatomy ultrasound scheduled for September 16 in [place]. Continue labetalol and BP monitoring. Reviewed preeclampsia precautions and labor signs. Reinforced nutrition and movement tracking. Laboratory, Imaging, and Diagnostic Test Results - Date: 07/29/2024 - Blood group: O positive - Antibody screen: Negative - RPR: Non-reactive - Rubella: Immune - Hepatitis B: Negative - Hepatitis C: Negative - Gonorrhea: Negative - Chlamydia: Negative - Urinalysis: Clear - NIPT: Negative, female gender - SMA: Negative - AFP: Negative - Ultrasound (07/14/2024): - Gestational age: 16 weeks and 6 days - Estimated due date: 12/23/2024 09/21/24 <del>?</del> 26w 5d 80.456 kg 126/87 occasional cephalic 27 155 active at 26w5d with GDM and chronic HTN on labetalol. 1hr GTT 157. FM+, no CTX, FHR 155. Plan: Schedule 3hr GTT, start ASA 81mg, f/u in 2wks. Repeat sono in Oct, serial growth scans in , antepartum testing from 32w, plan delivery 37?39+6w if BP controlled. 10/20/24 <del>?</del> 30w 6d 80.456 kg 117/75 absent cephalic 32 145 active No contractions, LOF, VB and reports good FM. Denies NOVOA, VC, and epigastric pain. - Sabrina Serna is a patient presenting for routine care at 30 weeks and 6 days gestation. - Patient had an abnormal one-hour glucose tolerance test at a previous appointment. - Subsequent 3-hour glucose tolerance test results were within normal limits: - Fastin mg/dL - 1 hour: 149 mg/dL - 2 hour: 141 mg/dL - 3 hour: 111 mg/dL - Patient expressed desire to transfer care to a different provider in [place], but no facilities are currently accepting new patients. Plan - Continue routine care - No further action needed regarding glucose tolerance test, as 3-hour test results were within normal limits - Provide information on Hygeia breast pump, including XpressPower tubing, adapter replacements, bottle caps, breast urrutia, splash protectors, and locking rings 11/10/24 <del>?</del> 33w 6d 80.739 kg 120/87 occasional cephalic 33 140 active at 33 weeks and 6 days gestation presenting for routine visit. Patient reports no contractions and active movement. heart rate auscultated at 145 bpm, which is within normal range. History of abnormal 1-hour glucose test but normal 3-hour test. No current signs of anemia or syphilis, though routine screening labs have been ordered. - Lab order for routine labs: CBC, RPR, and A1C - Follow-up appointment scheduled in 2 weeks - Patient advised to contact Dr. Bell at [facility] for potential transfer of care - If transfer occurs, current appointment can be cancelled and records will be faxed as needed 11/25/24 <del>?</del> 36w 0d 82.157 kg 139/88 occasional cephalic 37 164 active - History of elevated blood pressures - Today's blood pressure is borderline at 139/88 - Reports experiencing cramps since Friday - Occurring primarily at nighttime - Intermittent in nature, coming and going - Denies any persistent contractions or other problems - Previously considered transferring care to [facility] in [place] - Patient reports [facility] is not currently delivering babies or performing C-sections - Expresses desire for tubal ligation during upcoming - Schedule at 38 weeks for chronic hypertension - Prescribe iron tablets for mild anemia - Sign consent form for bilateral tubal ligation (BTL) to be performed during - Patient to register at the hospital for upcoming - Follow up appointment scheduled in one week - GBS swab taken, results pending - Monitor for persistent contractions; patient advised to go to nearest hospital if contractions last 2-3 hours DENICE Calculator Estimated Delivery Date Method Current WG Current Estimate 12/23/24 Ultrasound #1 36w 3d Other Estimates 01/20/25 LMP (Uncertain) 32w 3d Notes Visit Date: 10/20/24 Last Updated by: Osman Lopez MD Problem List - Routine care - Abnormal estational diabetes screening but normal 3hr Visit Date: 07/20/24 Last Updated by: Claire Martinez CNM 34 yo . sono 07/14/24: 16w6. edc by glenroy is: 12/23/24 Office Procedures OB Clinic LOC & Office Proc's Nursing/Assessment Patient Status: Established Patient OB Clinic Nursing Assessment: Medication Reconciliation, Update PMH in EMR and Vital Signs OB Clinic Coordination of Care: Education Complex Pt/Fam, Consent,records obtained, informed consent, Lab and Imaging orders, Results/Orders obtained and Staff clarify orders Special Needs: Heart tones Established Patient Charge Established Patient Point Assignment: 115 Established Patient Point Charge: EP Level 3 (80-115) Assessment & Plan Diagnosis / Problem List (1) Supervision of high risk , unspecified, third trimester: Status: Acute Plan Problem List - , 36 weeks gestation - Chronic hypertension - Iron deficiency anemia - 2, para 1 - Scheduled repeat section Assessment at 36 weeks and 0 days gestation with chronic hypertension, not on medications. Blood pressure today is borderline at 139/88. Patient is experiencing nighttime cramps. Mild anemia noted with hemoglobin at 10.8 g/dL (cutoff 11 g/dL). Glucose levels are within normal limits. heart rate is 164 bpm, which is within normal range. Patient is scheduled for a repeat section with bilateral tubal ligation. Group B Streptococcus (GBS) swab was collected, results pending. Plan - Schedule at 38 weeks for chronic hypertension - Prescribe iron tablets for mild anemia - Sign consent form for bilateral tubal ligation (BTL) to be performed during - Patient to register at the hospital for upcoming - Follow up appointment scheduled in one week - GBS swab taken, results pending - Monitor for persistent contractions; patient advised to go to nearest hospital if contractions last 2-3 hours 1. Progress Reviewed gestational age, growth, and heart rate. Planned frequent visits (every 2 weeks until 36 weeks, then weekly). 2. Instructed patient to monitor movements and report decreases immediately. 3. Testing Counseled on routine third-trimester labs per guidelines. Discussed potential need for ultrasound or monitoring based on risk factors. 4. Preeclampsia Precaution Educated on preeclampsia signs: severe headache, vision changes, right upper quadrant pain, sudden swelling. Advised urgent reporting of symptoms and discussed blood pressure monitoring if high risk. 5. Labor Precautions Reviewed labor signs: regular contractions, pelvic pressure, back pain, bleeding, or fluid leakage. Instructed to seek immediate care for these symptoms. 6. Lifestyle and Delivery Preparation Reinforced vitamins, nutrition, and safe activity. Discussed plan, pain management, and . Advised on labor preparation (e.g., hospital bag) and expectations. 7. Psychosocial Support Assessed emotional well-being and offered resources for mental health or parenting support.
== END 2024-11-25 14:49 | disposition home or self-care (01) ==
LOC: HODSOBC 14:09
PROVIDERS: Supervising Provider Obstetrics & Gynecology; Visit Provider Obstetrics & Gynecology
DX: O09.523 Supervision of elderly multigravida, third trimester (principal); O09.893 Supervision of other high risk pregnancies, third trimester; O10.913 Unspecified pre-existing hypertension complicating pregnancy, third trimester; O99.013 Anemia complicating pregnancy, third trimester; D50.9 Iron deficiency anemia, unspecified; O09.293 Supervision of pregnancy with other poor reproductive or obstetric history, third trimester; O34.219 Maternal care for unspecified type scar from previous cesarean delivery; Z3A.36 36 weeks gestation of pregnancy; Z36.85 Encounter for antenatal screening for Streptococcus B; Z79.82 Long term (current) use of aspirin; Z79.899 Other long term (current) drug therapy
CPT/HCPCS: 99213; G0463

== ENCOUNTER 2024-12-06 10:54 | Outpatient (AMB) | payer MEDICARE, MEDICAID, SELFPAY ==
[2024-12-06 11:14] VITALS: BP 139/89; PULSE 81; RESP 16; TEMP 36.2; O2SAT 98; BMI 35.2
--- NOTE | 2024-12-06 11:14 | OBCLNT_ITS ---
Vital Signs 12/06/24 11:14 Height 1.52 m Height Method Stated Weight 81.363 kg Weight Measurement Method Standing Scale BMI 35.2 BP 139/89 H Blood Pressure Source Automatic Cuff Blood Pressure Location Left Upper Arm Position Sitting Respiration 16 Pulse 81 Pulse Source Monitor Temp 97.2 F Temp Source Oral Pulse Oximetry (%) 98 Oxygen Delivery Method Room Air Allergies/Home Meds Allergies & Medications Allergies No Known Allergies Allergy (Verified 12/09/24 07:07) Medication Reconciliation labetalol 100 mg tablet 100 mg PO BID 07/20/24 [History Confirmed 12/06/24] aspirin 81 mg tablet 81 mg PO QDAY 90 days #90 tabs 09/21/24 [Rx Confirmed 12/06/24] mv-mn no.97-folic 180 mcg-dha 25 mg-herb no.293 25 mg chewable tablet (Alive Daily Support ) tab PO 09/21/24 [History Confirmed 12/06/24] Intake Visit Data Collection New Patient or Established: Established Patient (seen at [facility] within 3 years) Reason for Visit:: OBC Seen by Clinical Staff ONLY (RN/MA): No Vp Packaging Required: No Do You Feel Safe at Home: Yes Authorities Contacted: N/A PCP or OBGYN visit in last 3 months: Yes Date of Last PCP or OBGYN visit: 11/25/24 Hx Now: Yes Are you currently on any form of Control: No Pain Present Currently: No Pain Scale Used: [place]-Blake/Numerical Pain scale:: 0 Smoking Status Smoking Status: Never smoker Questionnaires Covid-19 Vaccine Questionnaire Has patient been vacinated for Covid-19 Have you been vacinated for Covid-19: Yes PHQ-9 PHQ-2 Over the last 2 weeks, how often have you been bothered by any of the following problems? 1. Little interest or pleasure in doing things: not at all 2. Feeling down, depressed, or hopeless: not at all Total score: 0 PHQ-9 3. Trouble falling or staying asleep, or sleeping too much: Not at all 4. Feeling tired or having little energy: Not at all 5. Poor appetite or overeating: Not at all 6. Feeling bad about yourself - or that you are a failure or have let yourself or your family down: Not at all 7. Trouble concentrating on things, such as reading the newspaper or watching television: Not at all 8. Moving or speaking so slowly that other people could have noticed? - Or the opposite - being so fidgety or restless that you have been moving around a lot more than usual: not at all 9. Thoughts that you would be better off or of hurting yourself in some way: Not at all Total score: 0 If you checked off any problems, how difficult have these problems made it for you to do your work, take care of things at home, or get along with other people?: not difficult at all Source: Developed by Drs. Tim Pedroza, Yoli Calderon, Bharat Sellers and colleagues, with an educational ana m from [employer]. Depression screen completed yes Social History Living Situation History Lives With: Family Housing: Apartment Tobacco History Smoking Status: Never smoker Second Hand Smoke Exposure: No Alcohol History Alcohol Intake: Current Alcohol Intake Frequency: holidays/special occasions only Domestic Abuse History Do You Feel Safe at Home: Yes Care OB Visit Log OB Flowsheet Initial Weight: Not Recorded Date -?-?-?-?-?-?-?-?-?-?-?-?- EGA Weight BP Alb Glu CTX Pres Fundal ht FHR Mov Dilation Station Effacement Hx Notes Visit Note 07/20/24 -?-?-?-?-?-?-?-?-?-?-?-?- 17w 5d 81.193 kg 118/80 absent 15 145 ac tive 34-year-old 2 para 1 here for OBI. Last period April 15, 2024. EDC by LMP is on January 19, 2025. Patient had an ultrasound at [facility] July 14 on that day she was measuring 16 weeks 6 days. heart tones present. Cervical length 5.2. NASIR was normal. Normal anatomy was also seen at that time. And an EDC by a 16-week ultrasound is December 23, 2024. Patient reports that her periods are usually irregular. Patient is taking labetalol 200 mg twice daily for hypertension. And patient is also taking her vitamin and low-dose baby aspirin as well. Patient has routine follow-up with her primary care for hypertension. Today we did OB panel. And carrier screen NIPT and AFP were also drawn. And ordered MFM ultrasound. Patient will follow-up with OB for next visit. SAB precautions were discussed 08/24/24 -?-?-?-?-?-?-?-?-?-?-?-?- 22w 5d 80.456 kg 115/79 at 22 weeks and 5 days gestation, presents for routine care. History of chronic hypertension on labetalol 200 mg BID and prior section in 2008. Reports persistent morning nausea occurring after medications and activity, without vomiting. No contractions, LOF, VB; movements are reassuring. All prior labs and NIPT are within normal limits; fetus is female. FHT 159?160 bpm. Plan: Prescribed nausea medication to ta ke prior to meals. Ordered glucose tolerance testing for 25?26 weeks gestation. Follow-up in 4 weeks with anatomy ultrasound scheduled for September 16 in [place]. Continue labetalol and BP mo nitoring. Reviewed preeclampsia precautions and labor signs. Reinforced nutrition and movement tracking. Laboratory, Imaging, and Diagnostic Test Results - Date: 07/29/2024 - Blood group: O positive - Antibody screen: Negative - RPR: Non-reactive - Rubella: Immune - Hepatitis B: Negative - Hepatitis C: Negative - Gonorrhea: Negative - Chlamydia: Negative - Urinalysis: Clear - NIPT: Negative, female gender - SMA: Negative - AFP: Negative - Ultrasound (07/14/2024): - Gestational age: 16 weeks and 6 days - Estimated due date: 12/23/2024 09/21/24 -?-?-?-?-?-?-?-?-?-?-?-?- 26w 5d 80.456 kg 126/87 occasional cephalic 27 155 active at 26w5d with GDM and chronic HTN on labetalol. 1hr GTT 157. FM+, no CTX, FHR 155. Plan: Schedule 3hr GTT, start ASA 81mg, f/u in 2wks. Repeat sono in Oct, serial growth scans in , antepartum testing from 32w, plan delivery 37?39+6w if BP controlled. 10/20/24 -?-?-?-?-?-?-?-?-?-?-?-?- 30w 6d 80.456 kg 117/75 absent cephalic 32 145 active No contractions, LOF, VB and reports good FM. Denies NOVOA, VC, and epigastric pain. - Sabrina Serna is a patient presenting for routine care at 30 weeks and 6 days gestation. - Patient had an abnormal one-hour gluco se tolerance test at a previous appointment. - Subsequent 3-hour glucose tolerance te st results were within normal limits: - Fastin mg/dL - 1 hour: 149 mg/dL - 2 hour: 141 mg/dL - 3 hour: 111 mg/dL - Patient expressed desire to transfer c are to a different provider in [place], but no facilities are currently accepting new patients. Plan - Continue routine care - No further action needed regarding glu cose tolerance test, as 3-hour test results were within normal limits - Provide information on Hygeia breast p ump, including XpressPower tubing, adapt er replacements, bottle caps, breast urrutia, splash protectors, and locking rings 11/10/24 -?-?-?-?-?-?-?-?-?-?-?-?- 33w 6d 80.739 kg 120/87 occasional cephalic 33 140 active at 33 weeks and 6 days gestation presenting for routine visit. Patient reports no contractions and active movement. heart rate auscultated at 145 bpm, which is within normal range. History of abnormal 1-hour glucose test but normal 3-hour test. No current signs of anemia or syphilis, though routine screening labs have been ordered. - Lab or chioma for routine labs: CBC, RPR, and A1C - Follow-up appointment scheduled in 2 w eeks - Patient advised to contact Dr. Bell at [facility] for potential transfer of care - If transfer occurs, current appointmen t can be cancelled and records will be faxed as needed 11/25/24 -?-?-?-?-?-?-?-?-?-?-?-?- 36w 0d 82.157 kg 139/88 occasional cephalic 37 164 active - History of elevated blood pressures - Today's blood pressure is borderline at 139/88 - Reports experiencing cramps since - Occurring primarily at nighttime - Intermittent in nature, coming and g oing - Denies any persistent contractions or other problems - Previously considered transferring car e to [facility] in [place] - Patient reports [facility] is not currently delivering babies or performing C-sections - Expresses desire for tubal ligation during upcoming - Schedule C- section at 38 weeks for chronic hypertension - Prescribe iron tablets for mild anemia - Sign consent form for bilateral tubal ligation (BTL) to be performed during C- section - Patient to register at the hospital fo r upcoming - Follow up appointment scheduled in one week - GBS swab taken, results pending - Monitor for persistent contractions; p atient advised to go to nearest hospital if contractions last 2-3 hours 12/06/24 -?-?-?-?-?-?-?-?-?-?-?-?- 37w 4d 81.363 kg 139/89 occasional cephalic 38 145 active - Patient reports no contractions at this time. - She states that everything is going we ll with her . - GBS testing was completed at her previ ous visit. - Patient denies any current concerns or symptoms. - scheduled at 38 weeks - Patient to arrive at hospital by 5:30 or 6:00 AM on - Clinician to meet patient at 7:00 AM - Pre-operative procedures: blood draw, change into hospital gown, shave surgical area - Surgery to begin at 7:30 AM - No food, water, or medications after 1 0:00 PM the night before surgery - Remove all metal objects; tape those t hat cannot be removed - Follow-up appointment scheduled for 2 weeks [id number] DENICE Calculator Estimated Delivery Date Method Current WG Current Estimate 12/23/24 Ultrasound #1 38w 0d Other Estimates 01/20/25 LMP (Uncertain) 34w 0d Notes Visit Date: 10/20/24 Last Updated by: Osman Lopez MD Problem List - Routine care - Abnormal estational diabetes screening but normal 3hr Visit Date: 07/20/24 Last Updated by: Claire Martinez CNM 34 yo . glen[place] 07/14/24: 16w6. edc by glenroy is: 12/23/24 Office Procedures OBC Clinic LOC & Office Proc's Nursing/Assessment Patient Status: Established Patient OB Clinic Nursing Assessment: Medication Reconciliation, Update PMH in EMR and Vital Signs OB Clinic Coordination of Care: Education Complex Pt/Fam, Consent,records obtained, informed consent, Lab and Imaging orders, Results/Orders obtained and Staff clarify orders Special Needs: Heart tones Established Patient Charge Established Patient Point Assignment: 115 Established Patient Point Charge: EP Level 3 (80-115) Assessment & Plan Diagnosis / Problem List (1) Supervision of high risk , unspecified, third trimester: Status: Acute Plan Problem List - , 37 weeks and 4 days - Group B Streptococcus screening completed - Scheduled for section Assessment at 37 weeks and 4 days gestation, scheduled for section at 38 weeks. Group B Streptococcus (GBS) screening has been completed. heart rate auscultated at 145 bpm, which is within normal range. Patient reports no contractions and overall good condition. Pre-operative instructions have been provided, including NPO status after 10 PM and removal of metal objects prior to surgery. Plan - scheduled at 38 weeks - Patient to arrive at hospital by 5:30 or 6:00 AM on - Clinician to meet patient at 7:00 AM - Pre-operative procedures: blood draw, change into hospital gown, shave surgical area - Surgery to begin at 7:30 AM - No food, water, or medications after 10:00 PM the night before surgery - Remove all metal objects; tape those that cannot be removed - Follow-up appointment scheduled for 2 weeks [id number] 1. Progress Reviewed gestational age (37 weeks and 4 days), growth, and heart rate (145, normal heartbeat). Planned frequent visits (every 2 weeks until 36 weeks, then weekly). 2. Instructed patient to monitor movements and report decreases immediat carlos enrique. 3. Testing Counseled on routine third-trimester labs per guidelines (GBS was done last time). Discussed potential need for ultrasound or monitoring based on risk factors. 4. Preeclampsia Precaution Educated on preeclampsia signs: severe headache, vision changes, right upper quadrant pain, sudden swelling. Advised urgent reporting of symptoms and discussed blood pressure monitoring if she is high risk. 5. Labor Precautions Reviewed labor signs: regular contractions, pelvic pressure, back pain, bleeding, or fluid leakage. Instructed her to seek immediate care for these symptoms. 6. Lifestyle and Delivery Preparation Reinforced vitamins, nutrition, and safe activity. Discussed plan (scheduled at 38 weeks), pain management, and . Advised her on labor preparation (arrive by 5:30-6 AM, NPO after 10 PM, remove metal jewelry) and expectations (follow-up in 2 weeks post C- section). 7. Psychosocial Support Assessed her emotional well-being and offered resources for mental health or parenting support.
== END 2024-12-06 11:33 | disposition home or self-care (01) ==
LOC: HODSOBC 10:54
PROVIDERS: Supervising Provider Obstetrics & Gynecology; Visit Provider Obstetrics & Gynecology
DX: O09.523 Supervision of elderly multigravida, third trimester (principal); Z3A.37 37 weeks gestation of pregnancy
CPT/HCPCS: 99213; G0463

== ENCOUNTER 2024-12-09 06:07 | Inpatient (IN) | payer MEDICARE, MEDICAID, SELFPAY ==
[2024-12-09] VITALS (35 sets, daily range): BP systolic 0–140; BP diastolic 0–99; PULSE 60–86; RESP 12–21; TEMP 36.4–37.2; O2SAT 94–100; BMI 35.3
[2024-12-09 07:11] LABS: Basophils # (Auto) 0.1 Thou/mm3 (0.0-0.2); Basophils % (Auto) 1 % (0-2.5); Eosinophils # (Auto) 0.1 Thou/mm3 (0.0-0.5); Eosinophils % (Auto) 1 % (0-10); Hematocrit 33.3 % (36.0-46.0); Hemoglobin 11.1 g/dL (12.0-16.0); Immature Granulocytes Auto 0.05 Thou/mm3 (0.00-0.00); Lymphocytes # (Auto) 1.7 Thou/mm3 (1.0-4.8); Lymphocytes % (Auto) 20 % (10-50); Mean Corpuscular HGB Conc 33.3 g/dl (31.0-37.0); Mean Corpuscular Hemoglobin 26.3 pg (25.0-35.0); Mean Corpuscular Volume 79 fL (80-100); Monocytes # (Auto) 0.6 Thou/mm3 (0.0-0.8); Monocytes % (Auto) 7 % (0-12); Neutrophils # (Auto) 5.7 Thou/mm3 (1.8-7.7); Neutrophils % (Auto) 70 % (37-80); Nucleated Red Blood Cell # 0.00 Thou/mm3 (0.00-0.00); Nucleated Red Blood Cell % 0 /100 WBC (0); Platelet Count 209 Thou/mm3 (140-440); RDW Standard Deviation 40.8 fL (36.4-46.3); Red Blood Count 4.22 Miln/mm3 (4.00-5.20); White Blood Count 8.2 Thou/mm3 (3.6-11.0)
[2024-12-09] MEDS: ceFAZolin/D5W 2 GM IV 2 GM/100 ML BAG IV (07:39)
[2024-12-09] MEDS: FAMOTIDINE INJ 10 MG/ML VIAL 2 ML 20 MG IV (07:39)
--- NOTE | 2024-12-09 07:42 | PD.LDHP ---
Documentation for date of: 12/09/24 OB Labor/Induct. HPI History of Present Illness Chief complaint: Schedule repeat and BTL : 2 Para: 1 Term pregnancies: 1 pregnancies: 0 Living children: 1 History of Abortions: Spontaneous and Elective: 0 History of Vaginal deliveries: 0 DENICE: 12/23/24 Gestational Age (weeks): 38 Gestational Age (days): 0 History of present illness: 34-year-old 2 para 1-0-0-1 at 38 weeks and 0 days presenting for scheduled repeat low-transverse and bilateral tubal ligation. On presentation patient denies any contractions or leakage of fluid or vaginal bleeding and reports adequate movements. Patient denies any chest pain or shortness of breath, she denies any other symptoms. Patient has a history of gestational hypertension without any medications. Patient also had an abnormal 1 hour glucose tolerance but her 3-hour glucose tolerance was within normal limits. She tried very hard to transfer to a clinic in [place] where she lives but there were no facilities that were accepting transfer. Her records were reviewed as scanned. Labs Labs: Positive: Rubella Titre and Group Beta Strep, Negative: RPR, Hepatitis B, HIV, Chlamydia and Gonorrhea and Unknown: Herpes Type 1, Herpes Type 2 and Covid-19 Review of Systems Review of Systems Systems Reviewed: All systems reviewed, normal except as documented Meds Home Medications and Allergies Home Medications ?Medication ?Instructions ?Recorded ?Confirmed ?Type labetalol 100 mg tablet 100 mg PO BID 07/20/24 12/06/24 History mv-mn no.97-folic 180 mcg-dha 25 tab PO 09/21/24 12/06/24 History mg-herb no.293 25 mg chewable tablet (Alive Daily Support ) Allergies Allergy/AdvReac Type Severity Reaction Status Date / Time No Known Allergies Allergy Verified 12/09/24 07:07 OB Exam Physical Exam Vital signs: Pulse BP Pulse Ox 76 135/93 H 94 L 12/09/24 07:38 12/09/24 07:38 12/09/24 07:41 Constitutional Constitutional: no acute distress Routine HEENT Exam Head: Present normocephalic and atraumatic Eye: Present EOMI and PERRL ENT: Present mucous membranes moist Routine Neck Exam Neck: Present supple and trachea midline Routine Cardiovascular Exam Cardiovascular: Present RRR Routine Abdominal Exam Abdominal: Present soft and normoactive bowel sounds Detailed Labor and Delivery Exam Presentation: Vertex Baseline heart rate: 140 monitor accelerations: 15x15 monitor decelerations: None long term care administrator variability: Average (6-10) Routine Extremities Exam Extremities: Present full ROM Routine Skin Exam Skin: Present intact, dry and warm Routine Neurological Exam Neurological: Present alert, oriented X3 and CN II-XII intact Routine Psychiatric Exam Psychiatric: Present normal affect and normal thought process OB Results Labs 12/09/24 06:55 Labs: Short CBC 12/09/24 Range/Units 06:55 WBC 8.2 (3.6-11.0) Thou/mm3 Hgb 11.1 L (12.0-16.0) g/dL Hct 33.3 L (36.0-46.0) % Plt Count 209 (140-440) Thou/mm3 OB Assessment & Plan Assessment and Plan (1) Supervision of high risk , unspecified, third trimester: Status: Acute Assessment and plan: Admit to inpatient status for repeat low transverse and bilateral tubal ligation IV access, CBC, type and screen, LR at 125, RPR, COVID-19 test GBS negative Ancef 2 g prior to surgery start Lepe catheter to drainage SCDs for DVT prophylaxis Anesthesia to preop for spinal anesthesia Scheduled for surgery. (2) Previous section: Status: Acute
[2024-12-09 07:45] LABS: Syphilis Nonreactive (Nonreactive)
--- NOTE | 2024-12-09 07:48 | PD.GYNPROC ---
Operative Note - HUMAN RESOURCES REPRESENTATIVE Procedure Date of procedure: 12/09/24 Procedure Performed: Repeat low-transverse section and bilateral salpingectomy Indication: 34-year-old 2 para 1 at 38 weeks and 0 days with gestational hypertension Previous section Desired surgical sterilization Procedure description: Informed consent was obtained, and the patient was brought to the operating room. Identity was confirmed using two patient identifiers. Spinal anesthesia was administered, and the patient was positioned in the supine position. The abdomen and perineum were prepped and draped in the usual sterile fashion. A Lepe catheter was placed for continuous bladder drainage. A surgical timeout was performed. A Pfannenstiel skin incision was made and carried through the subcutaneous tissue to the rectus fascia. The fascia was incised transversely and dissected off the rectus muscles. The rectus muscles were in the midline, and the peritoneum was entered bluntly. A self-retaining retractor was placed. Adhesions, if present, were lysed as needed. A low transverse uterine incision was made, and the amniotic membranes were ruptured. The fetus was delivered without difficulty. The umbilical cord was clamped and cut, and the was handed to the team. The placenta was delivered manually, and the uterus was cleared of clots and membranes. The uterine incision was closed in two layers using 1-0 Monocryl. There were bleeding points noted at the left end of the uterine incision, which were controlled using [id number] sutures with 0 Vicryl. The uterus was noted to be adenomyotic, with diffuse oozing from multiple points. These bleeding sites were cauterized using the Bovie to ensure hemostasis. A bilateral salpingectomy was performed using the ENSEAL device, beginning on the right side followed by the left. Fallopian tube segments were sent to pathology. The uterus was returned to the peritoneal cavity, and hemostasis was confirmed throughout the pelvis. The rectus fascia was closed using 0 Vicryl. The subcutaneous layer was reapproximated using 2-0 plain gut, and the skin was closed using 4-0 Monocryl in a subcuticular fashion. A Dermabond Prineo dressing was applied. The patient was transferred to recovery in stable and awake condition. She tolerated the procedure well. All instrument, sponge, and lap counts were correct ?2. Specimen: left tube and right tube Estimated blood loss (ml): 700 Complications: none Surgical staff Operation Date: 12/09/24 07:45 <No data on this case meets the specified criteria> Diagnosis Discharge Diagnosis (1) Supervision of high risk , unspecified, third trimester: Status: Acute (2) Previous section: Status: Acute (3) Encounter for sterilization: Status: Acute Problem List Completed Was Problem List Reviewed/Reconciled?: Yes
--- NOTE | 2024-12-09 09:11 | OBDSUM_ITS ---
Data (Joel) Data : 2 Term: 1 : 0 Livin Abortions: Spontaneous & Theraputic: 0 Delivery Data (Joel) Labor Data Induction/Augmentation Agent: None ROM date: 12/09/24 ROM time: 08:10 Amniotic membrane rupture type: Artificial Amniotic fluid description: Clear Delivery Data [place] delivery date: 12/09/24 delivery time: 08:10 Placenta delivery date: 12/09/24 Placenta delivery time: 08:11 Delivered by: Jessica Delivery nurse: Suzanne Wilson nurse: Shonda Luong [employer] Teacher at delivery: No Delivery Method Delivery method: Low Transverse Presentation: Vertex Anesthesia Type Anesthesia Type: Spinal Placenta Placenta delivery description: Manual Removal Cord blood sent to lab: Yes cord blood collection: Cord Blood Type Episiotomy Episiotomy description: None Umbilical Cord cord description: 3 Vessels [place] Data (Joel) Data [place]'s gender: Female Identification band number: [id number] weight (gms): 2830 g Weight (pounds): 6 lbs and 3.8 ozs length: 47 cm 1 minute: 8 5 minutes: 9
[2024-12-09] MEDS: LABETALOL 100 MG TABLET PO ×2 (10:27→20:49)
[2024-12-09] MEDS: KETOROLAC INJ 30 MG/ML VIAL IVP (10:42)
[2024-12-09] MEDS: METHYLERGONOVINE INJ 0.2 MG/ML VIAL IM (10:47)
--- NOTE | 2024-12-09 11:40 | PC.NURSE ---
Fundal massage performed clots extracted and weighed 818, EBL in OR was 700. total EBL 818(PP)+700(OR)= 1518.
[2024-12-09] MEDS: OXYTOCIN in NS 20 units 20 UNIT/1,000 ML BAG 125 UNIT IV (12:14)
[2024-12-09] MEDS: ONDANSETRON INJ 2 MG/ML INJ 2 ML 4 MG IV (16:26)
[2024-12-09] MEDS: RINGERS LACTATED 1000 ML 1,000 ML 999 ML IV (20:49)
[2024-12-09] MEDS: RINGERS LACTATED 1000 ML 1,000 ML 125 ML IV (21:57)
[2024-12-10] VITALS (16 sets, daily range): BP systolic 107–133; BP diastolic 71–88; PULSE 70–81; RESP 16–20; TEMP 36.4–37.2; O2SAT 96–99
[2024-12-10] MEDS: SIMETHICONE 80 MG CHEW PO (05:39)
[2024-12-10] MEDS: KETOROLAC INJ 30 MG/ML VIAL IVP ×2 (05:39→12:30)
[2024-12-10 05:49] LABS: Basophils # (Auto) 0.0 Thou/mm3 (0.0-0.2); Basophils % (Auto) 0 % (0-2.5); Eosinophils # (Auto) 0.1 Thou/mm3 (0.0-0.5); Eosinophils % (Auto) 1 % (0-10); Hematocrit 22.5 % (36.0-46.0); Immature Granulocytes Auto 0.04 Thou/mm3 (0.00-0.00); Lymphocytes # (Auto) 1.5 Thou/mm3 (1.0-4.8); Lymphocytes % (Auto) 16 % (10-50); Mean Corpuscular HGB Conc 33.3 g/dl (31.0-37.0); Mean Corpuscular Hemoglobin 26.9 pg (25.0-35.0); Mean Corpuscular Volume 81 fL (80-100); Monocytes # (Auto) 0.5 Thou/mm3 (0.0-0.8); Monocytes % (Auto) 6 % (0-12); Neutrophils # (Auto) 7.0 Thou/mm3 (1.8-7.7); Neutrophils % (Auto) 76 % (37-80); Nucleated Red Blood Cell # 0.00 Thou/mm3 (0.00-0.00); Nucleated Red Blood Cell % 0 /100 WBC (0); Platelet Count 161 Thou/mm3 (140-440); RDW Standard Deviation 41.4 fL (36.4-46.3); Red Blood Count 2.79 Miln/mm3 (4.00-5.20); White Blood Count 9.2 Thou/mm3 (3.6-11.0)
[2024-12-10 05:50] LABS: Hemoglobin 7.5 g/dL (12.0-16.0)
[2024-12-10] MEDS: RINGERS LACTATED 1000 ML 1,000 ML 125 ML IV (06:43)
--- NOTE | 2024-12-10 08:27 | ESPR_ITS ---
Subjective Subjective Interval history: Delivery type: , course significant for passage of a large clot immediately postop, patient also had borderline urine output and she was given IV bolus at night. A.m. hemoglobin is 7.7 Patient doing well this morning. No acute complaints. Ambulating, tolerating p.o. and voiding without difficulty. HTN/Pre-Eclampsia screen: No chest pain, shortness of breath, headache, visual changes, epigastric or right upper quadrant pain. Breast-feeding, lochia diminishing. Bowel: Flatus+ Exam Vital Signs Temp Pulse Resp BP Pulse Ox O2 Del Method 98.1 F 81 17 125/88 H 99 Room Air 12/10/24 07:40 12/10/24 07:40 12/10/24 07:40 12/10/24 07:40 12/10/24 07:40 12/10/24 07:40 Constitutional Constitutional: no acute distress Routine HEENT Exam Head: Present normocephalic and atraumatic Eye: Present EOMI and PERRL ENT: Present mucous membranes moist Routine Neck Exam Neck: Present supple and trachea midline Routine Respiratory Exam Respiratory: Present chest non-tender, lungs clear, normal breath sounds and no resp distress Routine Cardiovascular Exam Cardiovascular: Present RRR Routine Abdominal Exam Abdominal: Present soft and normoactive bowel sounds Routine Extremities Exam Extremities: Present full ROM Routine Skin Exam Skin: Present intact, dry and warm Routine Neurological Exam Neurological: Present alert, oriented X3 and CN II-XII intact Routine Psychiatric Exam Psychiatric: Present normal affect and normal thought process Objective Labs 12/10/24 04:50 Labs: Laboratory Results - last 24 hr 12/09/24 12/10/24 06:55 04:50 WBC 9.2 RBC 2.79 L Hgb 7.5 L D Hct 22.5 L D MCV 81 MCH 26.9 MCHC 33.3 RDW Std Deviation 41.4 Plt Count 161 D Neut % (Auto) 76 Lymph % (Auto) 16 [place] % (Auto) 6 Eos % (Auto) 1 Baso % (Auto) 0 Neut # (Auto) 7.0 Lymph # (Auto) 1.5 [place] # (Auto) 0.5 Eos # (Auto) 0.1 Baso # (Auto) 0.0 Immature Gran # (Auto) 0.04 H Absolute Nucleated RBC 0.00 Immature Gran % 0 Nucleated RBC % 0 Blood Type O Positive Antibody Screen NEGATIVE Crossmatch See Detail Blood Bank Wristband ID Yes Assessment & Plan Problem List (1) Supervision of high risk , unspecified, third trimester: Status: Acute (2) Previous section: Status: Acute (3) Encounter for sterilization: Status: Acute (4) delivery delivered: Status: Acute Assessment and plan: 1. Continue routine /post-op care 2. Labs reviewed, cbc appropriate 3. Remove dressing/Lepe 4. Encourage to ambulate, shower 5. Encourage PO intake, breast feeding 6. Will transfuse 2 units of packed RBCs and then follow-up with posttransfusion CBC Time Spent With Patient Time: Total time spent is greater than 50% in coordination of care (as documented) at patient's floor/unit and/or counseling patient:
[2024-12-10] MEDS: LABETALOL 100 MG TABLET PO ×2 (09:08→21:05)
[2024-12-10] MEDS: DOCUSATE SOD 100 MG CAPSULE PO (09:09)
[2024-12-10] MEDS: HYDROcodone/APAP 5/325 TABLET 2 TAB PO ×2 (16:36→22:16)
[2024-12-10 18:36] LABS: Hematocrit 27.3 % (36.0-46.0); Hemoglobin 9.1 g/dL (12.0-16.0)
[2024-12-11 03:40] VITALS: BP 121/80; PULSE 69; RESP 18; TEMP 36.8; O2SAT 98
[2024-12-11] MEDS: HYDROcodone/APAP 5/325 TABLET 2 TAB PO (04:13)
[2024-12-11] MEDS: SIMETHICONE 80 MG CHEW PO (04:14)
[2024-12-11 07:59] LABS: Basophils # (Auto) 0.0 Thou/mm3 (0.0-0.2); Basophils % (Auto) 1 % (0-2.5); Eosinophils # (Auto) 0.1 Thou/mm3 (0.0-0.5); Eosinophils % (Auto) 2 % (0-10); Hematocrit 25.0 % (36.0-46.0); Immature Granulocytes Auto 0.06 Thou/mm3 (0.00-0.00); Lymphocytes # (Auto) 1.5 Thou/mm3 (1.0-4.8); Lymphocytes % (Auto) 19 % (10-50); Mean Corpuscular HGB Conc 33.2 g/dl (31.0-37.0); Mean Corpuscular Hemoglobin 27.3 pg (25.0-35.0); Mean Corpuscular Volume 82 fL (80-100); Monocytes # (Auto) 0.5 Thou/mm3 (0.0-0.8); Monocytes % (Auto) 7 % (0-12); Neutrophils # (Auto) 5.7 Thou/mm3 (1.8-7.7); Neutrophils % (Auto) 72 % (37-80); Nucleated Red Blood Cell # 0.00 Thou/mm3 (0.00-0.00); Nucleated Red Blood Cell % 0 /100 WBC (0); Platelet Count 149 Thou/mm3 (140-440); RDW Standard Deviation 42.6 fL (36.4-46.3); Red Blood Count 3.04 Miln/mm3 (4.00-5.20); White Blood Count 7.9 Thou/mm3 (3.6-11.0)
[2024-12-11 08:05] LABS: Hemoglobin 8.3 g/dL (12.0-16.0)
[2024-12-11 08:23] VITALS: BP 128/83; PULSE 68
[2024-12-11] MEDS: IBUPROFEN TAB 400 MG TABLET 800 MG PO (08:23)
[2024-12-11] MEDS: DOCUSATE SOD 100 MG CAPSULE PO (08:23)
[2024-12-11] MEDS: LABETALOL 100 MG TABLET PO (08:23)
[2024-12-11 08:25] VITALS: BP 128/83; PULSE 68; RESP 18; TEMP 36.9; O2SAT 97
--- NOTE | 2024-12-11 08:47 | PD.LDPPPRG ---
Subjective Subjective Interval history: The patient is a 34-year-old -0-0-2 status post repeat with tubal ligation by Dr. Lopez. First was on 12/09/2024. Today the patient is resting comfortably in bed. She did have a hemorrhage and dropped her hemoglobin from a low of 7.7 she got 2 units of blood and now she is back up to 9.1. I rechecked it this morning and it is 8.3. Patient is ambulating tolerating a general diet voiding passing flatus. She would like to go home. Her is at bedside. They have a 15-year-old son at home. The patient has chronic hypertension. She sees Dr. Donnelly. Patient denies any heavy bleeding. Exam Vital Signs Temp Pulse Resp BP Pulse Ox O2 Del Method 98.2 F 68 18 128/83 98 Room Air 12/11/24 03:40 12/11/24 08:23 12/11/24 03:40 12/11/24 08:23 12/11/24 03:40 12/11/24 03:40 Narrative Exam Patient is alert and oriented x 3 in no apparent distress. Fundus is firm nontender. Incision is clean dry and intact. Extremities show no significant edema or erythema. Objective Labs 12/11/24 07:29 Labs: Laboratory Results - last 24 hr 12/09/24 12/10/24 12/11/24 06:55 18:14 07:29 WBC 7.9 RBC 3.04 L Hgb 9.1 L D 8.3 L Hct 27.3 L 25.0 L MCV 82 MCH 27.3 MCHC 33.2 RDW Std Deviation 42.6 Plt Count 149 Neut % (Auto) 72 Lymph % (Auto) 19 [place] % (Auto) 7 Eos % (Auto) 2 Baso % (Auto) 1 Neut # (Auto) 5.7 Lymph # (Auto) 1.5 [place] # (Auto) 0.5 Eos # (Auto) 0.1 Baso # (Auto) 0.0 Immature Gran # (Auto) 0.06 H Absolute Nucleated RBC 0.00 Immature Gran % 1 H Nucleated RBC % 0 Blood Type O Positive Antibody Screen NEGATIVE Crossmatch See Detail Blood Bank Wristband ID Yes Assessment & Plan Problem List (1) delivery delivered: Problem details: Discharge instructions given including no heavy lifting intercourse tampons douching x 6 weeks no heavy exercise x 6 weeks. Status: Acute (2) Advanced maternal age (AMA) in : Status: Acute (3) Chronic hypertension: Problem details: Patient to monitor blood pressures and take her medications. Follow-up with Dr. Donnelly in 1 week. Status: Acute Time Spent With Patient Time: Total time spent is greater than 50% in coordination of care (as documented) at patient's floor/unit and/or counseling patient: Time with patient: less than 15 minutes
--- NOTE | 2024-12-11 08:57 | ESDS_ITS ---
DS: Providers Provider Date of admission: 12/09/24 06:07 Primary care physician: Physician No Primary/Family Admitting Provider: Osman Lopez MD Attending Provider on Admission: Osman Lopez MD Consults: 12/09/24 09:57 Referral Routine Comment: Attending Provider on DC: Emily [facility]ir[facility] ([facility]) Discharging Provider: Emily Aguirre MD ([facility]) Anticipated date of discharge: 12/11/24 DS: Diagnosis Discharge Diagnosis (1) delivery delivered: Status: Acute Assessment & Plan: Patient is doing well post operative day #2. Discharge instructions given. Follow-up with Dr. Conti in 2 weeks. (2) Encounter for sterilization: Status: Acute Assessment & Plan: Patient's status post bilateral salpingectomies. Doing well. (3) Chronic hypertension: Status: Acute Assessment & Plan: Continue labetalol 100 p.o. twice daily. Problem List Completed Was Problem List Reviewed/Reconciled?: Yes Summary/Hosp Course Brief History: 34-year-old 2 para 1-0-0-1 at 38 weeks and 0 days presenting for scheduled repeat low-transverse and bilateral tubal ligation. On presentation patient denies any contractions or leakage of fluid or vaginal bleeding and reports adequate movements. Patient denies any chest pain or shortness of breath, she denies any other symptoms. Patient has a history of gestational hypertension without any medications. Patient also had an abnormal 1 hour glucose tolerance but her 3-hour glucose tolerance was within normal limits. She tried very hard to transfer to a clinic in [place] where she lives but there were no facilities that were accepting transfer. Her records were reviewed as scanned. Please see history and physical for further details. Hospital course: Patient was admitted and underwent an uncomplicated repeat C- section with bilateral salpingectomies. In postop patient did have some heavy bleeding. Dr. Lopez ordered 2 units of blood. She did not get a Bakri balloon. Please see op report for further details. day #1 patient was doing well. Her diet was advanced. Her hemoglobin after 2 units of blood was 9.1. day #2 patient was ambulating, voiding. Her pain was controlled with p.o. pain medications. Her repeat hemoglobin was 8.3. She was discharged home post op day #2 in stable condition. Discharge instructions included no heavy lifting intercourse tampons or douching for 6 weeks no exercise x 6 weeks. Peripartum Data Delivery Method: Low Transverse Episiotomy Description: None Procedures: Procedures Operation Date: 12/09/24 07:45 Actual Procedure Side Surgeon p w/tubal OB Bilateral Osman Lopez MD complications: transfusion (Patient had a transfusion postop day 0 almost immediately after she went to recovery. She received 2 units of blood.) Status at Discharge Cognitive/behavioral status at discharge: Patient is alert and orient x 3 in no apparent distress. Functional status at discharge: independent ambulation Overall status at discharge: patient is progressing back to baseline Time Spent with Patient Time attestation: Total time spent providing and/or coordinating discharge services: Time spent: Less than 30 minutes Specific discharge activities: No heavy lifting, intercourse, tampons, douching, bathtubs x 6 weeks. No strenuous exercise x 6 weeks. Follow-up with Dr. Lopez in the office in 2 and 6 weeks. Exam Vital Signs Temp Pulse Resp BP Pulse Ox O2 Del Method 98.2 F 68 18 128/83 98 Room Air 12/11/24 03:40 12/11/24 08:23 12/11/24 03:40 12/11/24 08:23 12/11/24 03:40 12/11/24 03:40 Narrative Exam Patient is alert and oriented x 3 resting comfortably in bed in no apparent distress. Fundus is firm nontender incision is clean dry and intact. Extremities show no significant edema or erythema. Discharge Plan Plan Patient Disposition: HOME (Self Care) Disposition Comment: Stable Prescriptions/Referrals Prescriptions/Med Rec: New acetaminophen 325 mg Tablet 650 mg PO Q6HR PRN (Reason: Patient rated pain of 3) Qty: 30 0RF hydrocodone-acetaminophen 5-325 mg Tablet 2 tab PO Q6HR MDD 4 PRN (Reason: Patient rated pain 9 to 10) Qty: 20 0RF ibuprofen 400 mg Tablet 800 mg PO Q8HR PRN (Reason: Pain Scale 4-6 (Moderate) Qty: 30 0RF docusate sodium 100 mg Capsule 100 mg PO QDAY Qty: 30 0RF Continued Alive Daily Support 180 mcg-25 mg- 25 mg tablet,chewable PO labetalol 100 mg tablet 100 mg PO BID Discontinued aspirin 81 mg tablet 81 mg PO QDAY 90 Days Qty: 90 3RF Referrals: No Primary/Family,Physician [Primary Care Provider] Patient/Caregiver Discharge Instructions Discharge Activity: activity as tolerated Other Discharge Activity Instructions:: No heavy lifting, intercourse, tampons, douching, bathtubs or heavy exercise x 6 weeks. Other Discharge Diet Instructions: High iron diet, drink lots of water Education Materials: Anemia During , C Section Dc, Incision Care Dc Print Language: Croatian Activity Restrictions/Additional Instructions: No heavy lifting intercourse tampons or douching x 6 weeks. Call with heavy ble eding. Call with severe depression. No strenuous exercise x 6 weeks. Stand Alone Forms: Shireen Award Info., Patient Portal Info Letter Discharge Order Discharge Orders: Discharge (Routine); Ordered 12/11/24 Ordered By: Emily Aguirre ([facility]) Planned Discharge Date 12/11/24
== END 2024-12-11 11:22 | disposition home or self-care (01) | DRG 784 ==
LOC: S4SX 08:25 → S4NX 09:05
PROVIDERS: Obstetrics & Gynecology; Admitting Provider Obstetrics & Gynecology; Visit Provider Obstetrics & Gynecology
PROC: 0UL70ZZ Occlusion of Bilateral Fallopian Tubes, Open Approach (ICD-10-PCS; CPT 59514; principal; 2024-12-09 07:30)
DX: O34.211 Maternal care for low transverse scar from previous cesarean delivery (principal); O10.92 Unspecified pre-existing hypertension complicating childbirth; O72.1 Other immediate postpartum hemorrhage; Z3A.38 38 weeks gestation of pregnancy; Z37.0 Single live birth; N80.03 Adenomyosis of the uterus; O34.593 Maternal care for other abnormalities of gravid uterus, third trimester; Z30.2 Encounter for sterilization; Z79.899 Other long term (current) drug therapy
CPT/HCPCS: 36415; 59409; 85014; 85018; 85025; 86780; 86850; 86900; 86901; 86923; 94762; J0689; J1200; J1885; J2210; J2274; J2371; J2405; J2590; J3490; J7120; P9016; A9270; J2270

== ENCOUNTER 2024-12-23 14:54 | Outpatient (AMB) | payer MEDICARE, MEDICAID, SELFPAY ==
--- NOTE | 2024-12-23 15:00 | AMB.OBPP ---
Vital Signs 12/23/24 15:01 Height 1.52 m Height Method Stated Weight 74.389 kg Weight Measurement Method Standing Scale BMI 32.1 BP 130/87 H Blood Pressure Source Automatic Cuff Blood Pressure Location Right Upper Arm Position Sitting Respiration 17 Pulse 72 Pulse Source Monitor Temp 97.6 F Temp Source Temporal Artery Scan Pulse Oximetry (%) 97 Oxygen Delivery Method Room Air Allergies/Home Meds Allergies & Medications Allergies No Known Allergies Allergy (Verified 12/23/24 15:02) Medication Reconciliation labetalol 100 mg tablet 100 mg PO BID 07/20/24 [History Confirmed 12/23/24] mv-mn no.97-folic 180 mcg-dha 25 mg-herb no.293 25 mg chewable tablet (Alive Daily Support ) tab PO 09/21/24 [History Confirmed 12/23/24] acetaminophen 325 mg tablet 650 mg (2 x 325 mg) PO Q6HR PRN Patient rated pain of 3 #30 tabs 12/11/24 [Rx Confirmed 12/23/24] docusate sodium 100 mg capsule 100 mg PO QDAY #30 caps 12/11/24 [Rx Confirmed 12/23/24] hydrocodone 5 mg-acetaminophen 325 mg tablet 2 tab PO Q6HR PRN Patient rated pain 9 to 10 #20 tabs 12/11/24 [Rx Confirmed 12/23/24] ibuprofen 400 mg tablet 800 mg (2 x 400 mg) PO Q8HR PRN Pain Scale 4-6 (Moderate #30 tabs 12/11/24 [Rx Confirmed 12/23/24] Intake Visit Data Collection New Patient or Established: Established Patient (seen at [facility] within 3 years) Reason for Visit:: POST OP CSECTON Seen by Clinical Staff ONLY (RN/MA): No Corporate Driver Required: No Do You Feel Safe at Home: Yes Authorities Contacted: N/A PCP or OBGYN visit in last 3 months: Yes Date of Last PCP or OBGYN visit: 12/11/24 Hx Now: No Are you currently on any form of Control: No Pain Present Currently: No Pain Scale Used: [place]/Numerical Pain scale:: 0 Smoking Status Smoking Status: Never smoker PROCESS ARTIST: Past Medical History Past Medical History: No Hx Neurological Disorders, No Hx Breast Cancer, No Hx Cardiac Disorders, No Hx Cancer, No Hx Blood Disorders, No Hx Anemia, No Hx Gastrointestinal Disorders, No Hx Renal Disease, Yes Hx Diabetes Mellitus Type 1 (grandmother DM) and No Hx Diabetes Mellitus Type 2 Questionnaires Covid-19 Vaccine Questionnaire Has patient been vacinated for Covid-19 Have you been vacinated for Covid-19: No Social History Living Situation History Marital Status: Life Partner Lives With: Family Housing: Apartment Tobacco History Smoking Status: Never smoker Second Hand Smoke Exposure: No Alcohol History Alcohol Intake: Current Alcohol Intake Frequency: holidays/special occasions only Domestic Abuse History Do You Feel Safe at Home: Yes EPDS - PP Depression Screening [place] Pospartum Depression Screen I have been able to laugh and see the funny side of things: (0) As much as I always could I have looked forward with enjoyment to things: (0) As much as I ever did I have blamed myself unnecessarily when things went wrong: (0) No, never I have been anxious or worried for no good reason: (0) No, not at all I have felt scared or panicky for no very good reason: (0) No, not at all Things have been getting on top of me: (0) No, I have been coping as well as ever I have been so unhappy that I have had difficulty sleeping: (0) No, not at all I have felt sad or miserable: (0) No, not at all I have been so unhappy that I have been crying: (0) No, never The thought of harming myself has occurred to me: (0) Never EPDS completed yes HPI Interval History: Presenting for visit after repeat on December 17, 2024 Denies any specific complaints Exam Narrative Physical exam: Incision clean dry and intact, Prineo dressing removed General General Appearance: alert, in no apparent distress and healthy appearing Head Head exam: atraumatic Neck Neck exam: Present normal inspection and trachea midline Chest Chest inspection: Present normal inspection and symmetric chest wall rise External exam: Present normal external exam; Absent tenderness Neuro Neurological exam: Present oriented X3 Psych Psychiatric exam: Present normal affect and normal mood Office Procedures [facility] LOC & Office Proc's Nursing/Assessment Patient Status: Established Patient [facility] Nursing Assessment: Medication Reconciliation, Update PMH in EMR and Vital Signs [facility] Clinic Coordination of Care: Complex Care and Chronic Disease 1-5, Education Complex Pt/Fam, Consent,records obtained, informed consent and Staff clarify orders Established Patient Charge Established Patient Point Assignment: 90 Established Patient Point Charge: EP Level 3 (80-115) Antepartum Initial or Follow-up Antepartum Initial Visit: Yes Assessment & Plan Diagnosis / Problem List (1) Chronic hypertension: Status: Acute (2) delivery delivered: Status: Acute Plan: Patient recovering as expected. counseling provided. She will be released back to her primary RN [employer]PER[employer] for continuity of care. (3) Encounter for sterilization: Status: Acute
[2024-12-23 15:01] VITALS: BP 130/87; PULSE 72; RESP 17; TEMP 36.4; O2SAT 97; BMI 32.1
== END 2024-12-23 15:24 | disposition home or self-care (01) ==
LOC: HODSOBC 14:54
PROVIDERS: Supervising Provider Obstetrics & Gynecology; Visit Provider Obstetrics & Gynecology
DX: Z39.2 Encounter for routine postpartum follow-up (principal); O10.93 Unspecified pre-existing hypertension complicating the puerperium
CPT/HCPCS: 59425; 99213; G0463